=== PATIENT | male | born 1975 | race African-American/Black ===

== ENCOUNTER 2016-05-22 15:55 | Inpatient (IN) | payer OTHER ==
[~2016-05-22] VITALS: Ht 177.8 cm; Wt 168.8 kg
[~2016-05-22 15:55] MED LIST: NORMOSOL R INJ 3,000 ML IV ONE; ONDANSETRON HCL 4 MG/2 ML VIAL IV PUSH ONE; PHENYLEPH/NS 1000 MCG/10 ML SYR IV ONE; PROPOFOL 200 MG/20 ML AMP IV ONE; ePHEDrine/NS 25 MG/5 ML SYR IV ONE
[2016-05-22 16:00] VITALS: O2SAT 97
[2016-05-22] MEDS ORDERED: ceFAZolin 2 GM PREMIX 50 ML ONE (16:04)
[2016-05-22] MEDS ORDERED: MORPHINE SULFATE 8 MG/ML INJ ONE (16:04)
[2016-05-22] MEDS ORDERED: DIPHTH/TETANUS/ACEL PERTUSSIS (BOOSTER) 0.5 ML VIAL/PFS IM ONE (16:05)
[2016-05-22 16:28] LABS: AUTOMATED NEUTROPHIL # 5.5 TH/MM3 (1.8-7.7); BASOPHIL # 0.1 TH/MM3 (0-0.2); BASOPHIL % 1.7 % (0.0-2.0); EOSINOPHIL # 0.3 TH/MM3 (0-0.4); EOSINOPHIL % 3.3 % (0.0-4.0); HEMATOCRIT 39.3 % (39.0-51.0); HEMO FLAGS DIFF FINAL; LYMPH % 18.5 % (9.0-44.0); LYMPHOCYTE # 1.5 TH/MM3 (1.0-4.8); MEAN CELL VOLUME 84.2 FL (80.0-100.0); MEAN CORPUSCULAR HEMOGLOBIN 28.1 PG (27.0-34.0); MEAN CORPUSCULAR HGB CONC 33.4 % (32.0-36.0); MONO % 9.2 % (0.0-8.0); NEUT % 67.3 % (16.0-70.0); PLATELET COUNT 199 TH/MM3 (150-450); RED BLOOD COUNT 4.66 MIL/MM3 (4.50-5.90); RED CELL DISTRIBUTION WIDTH 14.9 % (11.6-17.2); WHITE BLOOD COUNT 8.1 TH/MM3 (4.0-11.0)
[2016-05-22 16:35] LABS: I-STAT POTASSIUM 3.6 MMOL/L (3.5-4.9)
[2016-05-22 16:37] LABS: APTT (PATIENT) 25.4 SEC (24.3-30.1); PROTHROMBIN TIME - PATIENT 10.9 SEC (9.8-11.6)
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
[2016-05-22 17:04] VITALS: BP 129/67; PULSE 66; RESP 13; TEMP 97.7; O2SAT 97
[2016-05-22] MEDS ORDERED: SODIUM CHLOR 0.9% 1000 ML INJ 1,000 ML IV SCH (17:12)
[2016-05-22] MEDS ORDERED: HYDROmorphone HCL PF 1 MG/ML VIAL IV PRN (17:15)
[2016-05-22] MEDS ORDERED: MISCELLANEOUS NURSING INFORMATION XX SCH (17:15)
[2016-05-22] MEDS ORDERED: CHLORHEXIDINE GLUCONATE 2 % 1 PACK (2 CLOTHS) TOP PRN (17:15)
[2016-05-22] MEDS ORDERED: SODIUM CHLORIDE 0.9% FLUSH 5 ML FLUSH IV FLUSH PRN (17:15)
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
[2016-05-22] MEDS ORDERED: IOHEXOL 350 MG/ML 10 ML VIAL (for RAD DIAG) IV ONE (17:22)
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
[2016-05-22 17:45] VITALS: BP 131/60; PULSE 67; RESP 22; O2SAT 98
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
[2016-05-22] MEDS ORDERED: GENTAMICIN SULFATE 80 MG/2 ML VIAL ONE ×2 (17:47→19:34)
[2016-05-22] MEDS ORDERED: ceFAZolin INJ 1,000 MG VIAL ONE (17:47)
[2016-05-22] MEDS ORDERED: VANCOMYCIN HCL 1000 MG VIAL ONE (17:47)
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
--- NOTE | 2016-05-22 17:51 | PD.ORT.PN ---
Subjective Subjective Remarks Left open tibia/fibula fracture Objective Vitals Vital Signs Date Time Temp Pulse Resp B/P Pulse Ox O2 Delivery O2 Flow Rate FiO2 05/22/16 17:04 97.7 66 13 129/67 97 05/22/16 16:00 97 2.00 Result Diagram: 05/22/16 1605 Other Results Laboratory Tests Test 05/22/16 16:05 Prothrombin Time 10.9 SEC (9.8-11.6) Prothromb Time International 1.0 RATIO Ratio Imaging Last 24 hours Impressions Thoracic Spine CT 05/22/16 1610 Signed Impressions: Service Date/Time: Sunday, May 22, 2016 16:33 - CONCLUSION: Negative trauma CT. Steve Rogers MD Pelvis X-Ray 05/22/16 1610 Signed Impressions: Service Date/Time: Sunday, May 22, 2016 16:11 - CONCLUSION: No definite fracture. There is extensive overlying artifact limiting visualization. Steve Rogers MD Maxillofacial CT 05/22/16 1610 Signed Impressions: Service Date/Time: Sunday, May 22, 2016 16:13 - CONCLUSION: Negative trauma CT. Steve Rogers MD Head CT 05/22/16 1610 Signed Impressions: Service Date/Time: Sunday, May 22, 2016 16:13 - CONCLUSION: No acute hemorrhage or mass effect identified. The study is degraded by streak artifact. Steve Rogers MD Cervical Spine CT 05/22/16 1610 Signed Impressions: Service Date/Time: Sunday, May 22, 2016 16:13 - CONCLUSION: Negative trauma CT. Steve Rogers MD Tibia/Fibula X-Ray 05/22/16 0000 Signed Impressions: Service Date/Time: Sunday, May 22, 2016 16:11 - CONCLUSION: 1. Comminuted fracture of the proximal tibia. 2. Multiple fibula fractures. 3. Apparent deformity of the distal femur which is poorly visualized. 4. Soft tissue swelling and gas bubbles in the lateral proximal leg. Steve Rogers MD Objective Remarks full consult dictated Assessment & Plan Problem List: (1) Type I or II open fracture of shaft of left tibia and fibula Assessment and Plan Discussed with Trauma surgeon Discussed options with patient Recommend I and D and ORIF Informed consent was obtained Mathieu Carballo MD May 22, 2016 17:51
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
--- NOTE | 2016-05-22 17:57 | PD ---
Physical Exam Time Seen by Provider: 17:55 Data Data Last Documented VS Vital Signs Date Time Temp Pulse Resp B/P Pulse Ox O2 Delivery O2 Flow Rate FiO2 05/22/16 16:00 97 2.00 Orders Morphine Inj (Morphine Inj) (05/22/16 16:04) Cefazolin 2 Gm Premix (Ancef 2 Gm Premix (05/22/16 16:04) Tirz-Yly-Pwikxf (Booster) Inj (Boostrix (05/22/16 16:05) I-Stat Profile (05/22/16 16:10) I-Stat Creatinine (05/22/16 16:10) Complete Blood Count With Diff (05/22/16 16:10) Prothrombin Time / Inr (Pt) (05/22/16 16:10) Act Partial Throm Time (Ptt) (05/22/16 16:10) Type And Screen (05/22/16 16:10) Pelvis, Ap Only (Routine) (05/22/16 16:10) Ct Brain W/O Iv Contrast(Rout) (05/22/16 16:10) Ct Cerv Spine W/O Contrast (05/22/16 16:10) Ct Abd/Pel W Iv Contrast(Rout) (05/22/16 16:10) Ct Thorax/ Chest W Iv Contrast (05/22/16 16:10) Ct Thor Spine W/O Contrast (05/22/16 16:10) Ct Lumb Spine W/O Contrast (05/22/16 16:10) Ct Facial Bones W/O Iv Cont (05/22/16 16:10) Iv Access Insert/Monitor (05/22/16 16:10) Ecg Monitoring (05/22/16 16:10) Oximetry (05/22/16 16:10) Oxygen Administration (05/22/16 16:10) Admit Order (Ed Use Only) (05/22/16 ) Tibia/Fibula, One View (05/22/16 ) Red Blood Cells (Rbc) (05/22/16 16:05) Labs Laboratory Tests Test 05/22/16 16:05 White Blood Count 8.1 TH/MM3 Red Blood Count 4.66 MIL/MM3 Hemoglobin 13.1 GM/DL Bedside Hemoglobin 13.6 G/DL Hematocrit 39.3 % Bedside Hematocrit 40.0 % Mean Corpuscular Volume 84.2 FL Mean Corpuscular Hemoglobin 28.1 PG Mean Corpuscular Hemoglobin 33.4 % Concent Red Cell Distribution Width 14.9 % Platelet Count 199 TH/MM3 Mean Platelet Volume 9.3 FL Neutrophils (%) (Auto) 67.3 % Lymphocytes (%) (Auto) 18.5 % Monocytes (%) (Auto) 9.2 % Eosinophils (%) (Auto) 3.3 % Basophils (%) (Auto) 1.7 % Neutrophils # (Auto) 5.5 TH/MM3 Lymphocytes # (Auto) 1.5 TH/MM3 Monocytes # (Auto) 0.7 TH/MM3 Eosinophils # (Auto) 0.3 TH/MM3 Basophils # (Auto) 0.1 TH/MM3 CBC Comment DIFF FINAL Differential Comment Prothrombin Time 10.9 SEC Prothromb Time International 1.0 RATIO Ratio Activated Partial 25.4 SEC Thromboplast Time Bedside Sodium 142 MMOL/L Bedside Potassium 3.6 MMOL/L Bedside Chloride 104 MMOL/L Bedside Blood Urea Nitrogen 19 MG/DL Bedside Creatinine 1.7 MG/DL Bedside Glucose 188 MG/DL Blood Type O POSITIVE Antibody Screen NEGATIVE Crossmatch Leukocyte-Reduced Red Blood Cells Blood Bank Comment [facility] Medical Record Reviewed: Yes Supervised Visit with MIGEL: No Procedures Procedure Narrative LACERATION LOCATION: Left eyelid LENGTH: 1.5 centimeters NUMBER OF STITCHES/ZULY: Stay strips and Dermabond skin adhesive REPAIR: The area of the laceration was prepped with Betadine and sterilely draped. The wound was copiously irrigated and explored without evidence of foreign body, tendon injury or neurovascular injury. The wound was closed using Steri-Strips and Dermabond. This was a single layer repair. A sterile dressing was applied. The patient was advised to keep the dressing clean and dry. Patient tolerated the procedure well. Condition: Stable Mikala SmithP May 22, 2016 17:57
[2016-05-22] MEDS ORDERED: MISCELLANEOUS NURSING INFORMATION XX PRN (18:00)
[2016-05-22] MEDS ORDERED: MAGNESIUM HYDROXIDE SUSP 30 ML CUP PO PRN (18:00)
[2016-05-22] MEDS ORDERED: Post-op Orders (for Pharmacy) MISC XX ONE (18:00)
[2016-05-22] MEDS ORDERED: ONDANSETRON HCL 4 MG/2 ML VIAL IVP PRN (18:00)
[2016-05-22] MEDS ORDERED: NALOXONE HCL 0.4 MG/ML AMP IV PRN (18:00)
[2016-05-22] MEDS ORDERED: SODIUM CHLORIDE 0.9% FLUSH 5 ML FLUSH IVF PRN (18:00)
[2016-05-22] MEDS ORDERED: ACETAMINOPHEN 325 MG TAB PO PRN (18:00)
[2016-05-22] MEDS ORDERED: ACETAMINOPHEN 1000 MG/100 ML VIAL IV ONE (18:11)
--- NOTE | 2016-05-22 18:20 | PD.CONS ---
HPI Service Critical Care Medicine Consult Requested By Primary Care Physician Past Family Social History Allergies: Coded Allergies: UNOBTAINABLE (Unverified , 05/22/16) Physical Exam Vital Signs Vital Signs Date Time Temp Pulse Resp B/P Pulse Ox O2 Delivery O2 Flow Rate FiO2 05/22/16 17:45 67 22 131/60 98 Nasal Cannula 2 05/22/16 17:04 97.7 66 13 129/67 97 05/22/16 16:00 97 2.00 Laboratory Laboratory Tests Test 05/22/16 16:05 White Blood Count 8.1 Red Blood Count 4.66 Hemoglobin 13.1 Bedside Hemoglobin 13.6 Hematocrit 39.3 Bedside Hematocrit 40.0 Mean Corpuscular Volume 84.2 Mean Corpuscular Hemoglobin 28.1 Mean Corpuscular Hemoglobin 33.4 Concent Red Cell Distribution Width 14.9 Platelet Count 199 Mean Platelet Volume 9.3 Neutrophils (%) (Auto) 67.3 Lymphocytes (%) (Auto) 18.5 Monocytes (%) (Auto) 9.2 Eosinophils (%) (Auto) 3.3 Basophils (%) (Auto) 1.7 Neutrophils # (Auto) 5.5 Lymphocytes # (Auto) 1.5 Monocytes # (Auto) 0.7 Eosinophils # (Auto) 0.3 Basophils # (Auto) 0.1 CBC Comment DIFF FINAL Differential Comment Prothrombin Time 10.9 Prothromb Time International 1.0 Ratio Activated Partial 25.4 Thromboplast Time Bedside Sodium 142 Bedside Potassium 3.6 Bedside Chloride 104 Bedside Blood Urea Nitrogen 19 Bedside Creatinine 1.7 Bedside Glucose 188 Blood Type O POSITIVE Antibody Screen NEGATIVE Crossmatch Leukocyte-Reduced Red Blood Cells Blood Bank Comment Result Diagram: 05/22/16 1605 Zach Spangler MD May 22, 2016 18:20
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
[2016-05-22 19:55] LABS: BLOOD GAS VENOUS BASE EXCESS -0.5 mmol/L (-2-2); BLOOD GAS VENOUS HCO3 24 mmol/L (22-26); BLOOD GAS VENOUS O2 CONTENT 11.6 Vol % (9.0-17.0); BLOOD GAS VENOUS O2 HGB SAT 70 % (70-76); BLOOD GAS VENOUS PCO2 43 mmHg (44-48); BLOOD GAS VENOUS PO2 38 mmHg (35-40); BLOOD GAS VENOUS pH 7.37 (7.360-7.400); CRITICAL VALUE NO; OXYGEN DEVICE O.R. GAS; TEMP CORR TO 98.6
[2016-05-22 19:56] LABS: STAT YES; VENT SETTINGS O.R.GAS
[2016-05-22] MEDS ORDERED: MIDAZOLAM HCL 2 MG/2 ML VIAL ONE (20:21)
[2016-05-22] MEDS ORDERED: SODIUM CHLORIDE 0.9% FLUSH 5 ML FLUSH IV FLUSH SCH (21:00)
[2016-05-22] MEDS: DOCUSATE SODIUM 50 MG/SENNA 8.6 MG TAB PO SCH (21:00)
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
[2016-05-22] MEDS: PCA - TOTAL MG DILAUDID DELIVERED PER SHIFT OTHER SCH (22:00)
--- NOTE | 2016-05-22 22:28 | PD.OP ---
Operative Report Date of Surgery: May 22, 2016 Preoperative Diagnosis: (1) Type I or II open fracture of shaft of left tibia and fibula Postoperative Diagnosis: (1) Type I or II open fracture of shaft of left tibia and fibula Procedure: 1) Irrigation and debridement of open left tibial and fibula fracture 2) Left tibial open reduction and internal fixation of intramedullary rodding 3) Placement of wound vac Anesthesia: General Surgeon: Dr. Mathieu Carballo Statement Processor(s): RAGHU Ames Operation and Findings: See Dictation Rosendo Villagomez May 22, 2016 22:28
[2016-05-22] MEDS: DEXT 5%-NACL 0.45% 1000 ML INJ 1,000 ML IV SCH (22:30)
[2016-05-22] MEDS ORDERED: INSULIN HUMAN REGULAR 1,000 UNITS/10 ML VIAL SQ PRN (22:45)
[2016-05-22] MEDS ORDERED: LACTATED RINGER'S 1000 ML IV SCH (22:45)
[2016-05-22] MEDS: SODIUM CHLORID 0.9% 500 ML IV SCH (22:45)
[2016-05-22] MEDS ORDERED: METOPROLOL TARTRATE 25 MG TAB PO PRN (22:45)
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
[2016-05-22] MEDS: HYDROmorphone HCL PCA 6 MG/30 ML IV SCH (23:10)
[2016-05-22] MEDS ORDERED: POTASSIUM PHOSPHATE INJ 30 MMOL in SODIUM CHLOR 0.9% 250 ML INJ 250 ML IV PRN (23:30)
[2016-05-22] MEDS ORDERED: MAGNESIUM SULFATE INJ 4 GM in SODIUM CHLORIDE 0.9% INJ 92 ML IV PRN (23:30)
[2016-05-22] MEDS ORDERED: MAGNESIUM SULFATE INJ 2 GM in SODIUM CHLORIDE 0.9% INJ 96 ML IV PRN (23:30)
[2016-05-22] MEDS ORDERED: SODIUM PHOSPHATE INJ 30 MMOL in SODIUM CHLOR 0.9% 250 ML INJ 240 ML IV PRN (23:30)
[2016-05-22] MEDS ORDERED: POTASSIUM PHOSPHATE MONOBASIC 500 MG TAB PO/TUBE PRN (23:30)
[2016-05-22] MEDS ORDERED: POTASSIUM CHLOR 40 MEQ PREMIX 100 ML IV PRN ×2 (23:30)
[2016-05-22] MEDS ORDERED: MAGNESIUM OXIDE 400 MG TAB PO PRN (23:30)
[2016-05-22] MEDS ORDERED: POTASSIUM CHLOR 20 MEQ PREMIX 100 ML IV PRN ×2 (23:30)
[2016-05-22 23:51] LABS: MAGNESIUM 2.3 MG/DL (1.5-2.5)
[2016-05-23] MEDS ORDERED: CHLORHEXIDINE GLUCONATE 2 % 1 PACK (2 CLOTHS) TOP SCH (04:00)
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
[2016-05-23 04:47] LABS: AUTOMATED NEUTROPHIL # 10.9 TH/MM3 (1.8-7.7); BASOPHIL % 0.4 % (0.0-2.0); HEMATOCRIT 34.7 % (39.0-51.0); HEMO FLAGS DIFF FINAL; LYMPHOCYTE # 0.5 TH/MM3 (1.0-4.8); MEAN CELL VOLUME 85.5 FL (80.0-100.0); MEAN CORPUSCULAR HEMOGLOBIN 28.1 PG (27.0-34.0); MEAN CORPUSCULAR HGB CONC 32.8 % (32.0-36.0); MONO % 10.2 % (0.0-8.0); NEUT % 85.4 % (16.0-70.0); PLATELET COUNT 147 TH/MM3 (150-450); RED BLOOD COUNT 4.06 MIL/MM3 (4.50-5.90); RED CELL DISTRIBUTION WIDTH 14.9 % (11.6-17.2); WHITE BLOOD COUNT 12.8 TH/MM3 (4.0-11.0)
[2016-05-23 05:27] LABS: BICARBONATE 24.3 MEQ/L (21.0-32.0); POTASSIUM 3.9 MEQ/L (3.5-5.1)
[2016-05-23] MEDS: DEXT 5%-NACL 0.45% 1000 ML INJ 1,000 ML IV SCH ×3 (06:00→12:35)
[2016-05-23] MEDS: PCA - TOTAL MG DILAUDID DELIVERED PER SHIFT OTHER SCH ×3 (06:00→22:00)
[2016-05-23] MEDS ORDERED: SODIUM CHLOR 0.9% 1000 ML INJ 1,000 ML IV ONE ×2 (06:45→07:00)
[2016-05-23] MEDS ORDERED: ACETAMINOPHEN 325 MG TAB PO PRN (06:45)
[2016-05-23] MEDS ORDERED: LABETALOL HCL 100 MG/20 ML VIAL IV PUSH PRN (06:45)
[2016-05-23 07:10] LABS: BLOOD, URINE NEG (NEG); COMMENT (UR) CULT NOT INDICATED; CULTURE IF INDICATED CULT NOT INDICATED; GLUCOSE,URINE NEG (NEG); KETONE, URINE NEG (NEG); MUCUS URINE FEW /lpf (OCC); NITRITE,URINE NEG (NEG); PH, URINE 5.5 (5.0-8.5); SQUAMOUS EPITHELIAL CELL URINE <1 /hpf (0-5); URINE COLOR YELLOW (YELLW/STRAW)
[2016-05-23] MEDS ORDERED: hydrALAZINE HCL 20 MG/ML VIAL IV PUSH PRN (07:45)
[2016-05-23] MEDS: ceFAZolin 2 GM PREMIX 50 ML IV SCH ×3 (07:48→16:10)
[2016-05-23] MEDS: MULTIVITAMINS/MINERALS THERAPEUTIC TAB PO SCH (08:24)
[2016-05-23] MEDS: DOCUSATE SODIUM 50 MG/SENNA 8.6 MG TAB PO SCH ×2 (08:24→20:45)
[2016-05-23] MEDS: FAMOTIDINE 20 MG TAB PO SCH ×2 (08:24→20:45)
[2016-05-23] MEDS: SODIUM CHLORIDE 0.9% FLUSH 5 ML FLUSH IVF SCH ×2 (09:00→21:00)
[2016-05-23] MEDS: LACTULOSE SYRUP 20 GM/30 ML CUP PO SCH (10:13)
[2016-05-23 10:45] VITALS: BP 103/53; PULSE 85; RESP 16; TEMP 98.9; O2SAT 98
[2016-05-23 11:34] VITALS: BP 103/53; PULSE 85; RESP 16; TEMP 98.9; O2SAT 98
[2016-05-23] MEDS: oxyCODONE/ACETAMINOPHEN 5 MG/325 MG TAB PO PRN ×3 (12:20→20:46)
[2016-05-23] MEDS: SODIUM CHLORID 0.9% 500 ML IV SCH (12:22)
[2016-05-23 12:23] VITALS: BP 92/52; PULSE 76; RESP 16; TEMP 99.4; O2SAT 98
[2016-05-23] MEDS ORDERED: WALKER WHEELS/F1 MIS (13:32)
--- NOTE | 2016-05-23 15:43 | HHI.PR ---
Subjective Subjective Notes Pain is better controlled with Dilaudid INSPECTOR WEIGHTS AND MEASURES S/P LEFT tibia irrigation and debridement with IM jaime. Objective Vitals/I&O Vital Signs Date Time Temp Pulse Resp B/P Pulse Ox O2 Delivery O2 Flow Rate FiO2 05/23/16 12:23 99.4 76 16 92/52 98 05/23/16 08:00 Room Air 05/22/16 23:00 2 Labs Laboratory Tests Test 05/22/16 05/22/16 05/23/16 05/23/16 16:05 19:45 04:02 06:45 White Blood Count 8.1 12.8 Red Blood Count 4.66 4.06 Hemoglobin 13.1 11.4 Bedside Hemoglobin 13.6 Hematocrit 39.3 34.7 Bedside Hematocrit 40.0 Mean Corpuscular Volume 84.2 85.5 Mean Corpuscular Hemoglobin 28.1 28.1 Mean Corpuscular Hemoglobin 33.4 32.8 Concent Red Cell Distribution Width 14.9 14.9 Platelet Count 199 147 Mean Platelet Volume 9.3 9.2 Neutrophils (%) (Auto) 67.3 85.4 Lymphocytes (%) (Auto) 18.5 4.0 Monocytes (%) (Auto) 9.2 10.2 Eosinophils (%) (Auto) 3.3 0.0 Basophils (%) (Auto) 1.7 0.4 Neutrophils # (Auto) 5.5 10.9 Lymphocytes # (Auto) 1.5 0.5 Monocytes # (Auto) 0.7 1.3 Eosinophils # (Auto) 0.3 0.0 Basophils # (Auto) 0.1 0.0 CBC Comment DIFF FINAL DIFF FINAL Differential Comment Prothrombin Time 10.9 Prothromb Time International 1.0 Ratio Activated Partial 25.4 Thromboplast Time Bedside Sodium 142 Bedside Potassium 3.6 Bedside Chloride 104 Bedside Blood Urea Nitrogen 19 Bedside Creatinine 1.7 Bedside Glucose 188 Phosphorus Level 3.5 Magnesium Level 2.3 Blood Type O POSITIVE Antibody Screen NEGATIVE Crossmatch Leukocyte-Reduced Red Blood Cells Blood Bank Comment Blood Gas Puncture Site Blood Gas Patient Temperature 98.6 Venous Blood pH 7.37 Venous Blood Partial Pressure 43 CO2 Venous Blood Partial Pressure 38 O2 Venous Blood HCO3 24 Venous Blood Oxygen Saturation 70 Venous Blood Oxygen Content 11.6 Venous Blood Base Excess -0.5 Oxygen Delivery Device O.R. GAS Blood Gas Ventilator Setting O.R.GAS Sodium Level 143 Potassium Level 3.9 Chloride Level 108 Carbon Dioxide Level 24.3 Anion Gap 11 Blood Urea Nitrogen 21 Creatinine 1.98 Estimat Glomerular Filtration 29 Rate Random Glucose 129 Calcium Level 7.8 Urine Color YELLOW Urine Turbidity CLEAR Urine pH 5.5 Urine Specific [place] 1.043 Urine Protein TRACE Urine Glucose (UA) NEG Urine Ketones NEG Urine Occult Blood NEG Urine Nitrite NEG Urine Bilirubin NEG Urine Urobilinogen LESS THAN 2.0 Urine Leukocyte Esterase TRACE Urine RBC LESS THAN 1 Urine WBC 2 Urine Squamous Epithelial <1 Cells Urine Mucus FEW Microscopic Urinalysis Comment CULT NOT INDICATED Radiology Last Impressions Thoracic Spine CT 05/22/161609 Signed Impressions: Service Date/Time: Sunday, May 22, 2016 16:33 - CONCLUSION: Negative trauma CT. Steve Rogers MD Pelvis X-Ray 05/22/161609 Signed Impressions: Service Date/Time: Sunday, May 22, 2016 16:11 - CONCLUSION: No definite fracture. There is extensive overlying artifact limiting visualization. Steve Rogers MD Maxillofacial CT 05/22/161609 Signed Impressions: Service Date/Time: Sunday, May 22, 2016 16:13 - CONCLUSION: Negative trauma CT. Steve Rogers MD Lumbar Spine CT 05/22/161609 Signed Impressions: Service Date/Time: Sunday, May 22, 2016 16:33 - CONCLUSION: Negative trauma CT. Steve Rogers MD Head CT 05/22/161609 Signed Impressions: Service Date/Time: Sunday, May 22, 2016 16:13 - CONCLUSION: No acute hemorrhage or mass effect identified. The study is degraded by streak artifact. Steve Rogers MD Chest CT 05/22/161609 Signed Impressions: Service Date/Time: Sunday, May 22, 2016 16:33 - CONCLUSION: 1. Comminuted fracture of the left clavicle. 2. The Ribs are intact and there is no pneumothorax. Steve Rogers MD Cervical Spine CT 05/22/161609 Signed Impressions: Service Date/Time: Sunday, May 22, 2016 16:13 - CONCLUSION: Negative trauma CT. Steve Rogers MD Abdomen/Pelvis CT 05/22/161609 Signed Impressions: Service Date/Time: Sunday, May 22, 2016 16:33 - CONCLUSION: Negative trauma CT. Steve Rogers MD Tibia/Fibula X-Ray 05/22/16 0000 Signed Impressions: Service Date/Time: Sunday, May 22, 2016 21:06 - CONCLUSION: Fluoroscopic images during placement of intramedullary jaime fixating left tibia fracture. Sahil Portillo MD Chest X-Ray 05/22/16 0000 Signed Impressions: Service Date/Time: Sunday, May 22, 2016 16:11 - CONCLUSION: No acute disease. Left clavicle fracture. Sahil Portillo MD Narrative Exam GENERAL: 40 year old well-nourished, well developed male lying in bed. SKIN: Warm and dry. HEAD: Atraumatic. Normocephalic. ENT: No nasal bleeding or discharge. Mucous membranes pink and moist. NECK: Trachea midline. No JVD. CARDIOVASCULAR: Regular rate and rhythm. RESPIRATORY: No accessory muscle use. Lungs clear to auscultation. Breath sounds equal bilaterally. GASTROINTESTINAL: Abdomen soft, non-tender, nondistended. + BS. GENITOURINARY: Kumar cath in place draining hilary urine to bedside drainage bag. MUSCULOSKELETAL: Extremities without cyanosis, +2 edema LLE. LLE with wound vac in place. NEUROLOGICAL: Awake and alert. Normal speech. A/P Assessment and Plan INJURIES: Open LEFT tib-fib fracture LEFT clavicle fx (non-op) 05/22: LEFT tibia irrigation and debridement with IM jaime. Diet: Regular Pulmonary: IS, encourage patient use Pain: Percocet, Dilaudid INSPECTOR WEIGHTS AND MEASURES Activity: BR. (NWB LLE). PT ordered. GI: Pepcid Bowel: Lactulose DVT: Lovenox, SCDs IV Ancef per Ortho. Plan of care discussed with patient at bedside. Patient to obtain list of home medications. Remarks seen and examined with MACHINE OPERATOR TRANSPLANTER-agree with assessment and plan Delgado Barcenas May 23, 2016 15:43 Jeni Gómez MD Jun 01, 2016 17:48
--- NOTE | 2016-05-23 15:55 | PD.ORT.PN ---
Subjective Subjective Remarks Left tibia/fibula pain controlled Objective Vitals Vital Signs Date Time Temp Pulse Resp B/P Pulse Ox O2 Delivery O2 Flow Rate FiO2 05/23/16 12:23 99.4 76 16 92/52 98 05/23/16 12:20 16 05/23/16 11:34 98.9 85 16 103/53 98 05/23/16 10:45 98.9 85 16 103/53 98 05/23/16 08:00 83 16 155/93 96 Room Air 05/23/16 07:30 99.9 83 16 148/77 97 Room Air 05/23/16 07:00 80 20 150/82 96 Room Air 05/23/16 06:00 100.9 76 13 146/78 96 Room Air 05/23/16 06:00 14 05/23/16 05:00 78 15 143/85 94 Room Air 05/23/16 04:00 99.7 70 17 140/78 95 Room Air 05/23/16 03:00 71 16 122/74 98 Room Air 05/23/16 02:00 98.9 63 14 148/77 98 Room Air 05/23/16 01:00 71 13 131/78 98 Room Air 05/23/16 00:00 98.4 81 16 130/78 96 Room Air 05/22/16 23:10 12 05/22/16 23:00 98.2 75 11 117/70 99 Nasal Cannula 2 05/22/16 22:45 69 11 121/72 100 Nasal Cannula 2 05/22/16 22:30 71 9 123/69 100 Nasal Cannula 2 05/22/16 22:15 65 9 135/76 100 Nasal Cannula 3 05/22/16 22:07 98.6 99 10 132/92 95 Nasal Cannula 3 05/22/16 22:00 12 05/22/16 17:45 67 22 131/60 98 Nasal Cannula 2 05/22/16 17:04 97.7 66 13 129/67 97 05/22/16 16:00 97 2.00 I/O 05/22/16 05/22/16 05/22/16 05/23/16 05/23/16 05/23/16 07:00 15:00 23:00 07:00 15:00 23:00 Intake Total 4200 ml 1873 ml 1222 ml Output Total 1075 ml 395 ml 400 ml Balance 3125 ml 1478 ml 822 ml Intake Oral 0 ml 880 ml 222 ml IV Total 200 ml 993 ml 1000 ml Other 4000 ml Output Urine Total 75 ml 395 ml Drainage Total 400 ml Estimated Blood Loss 300 ml Other 700 ml Result Diagram: 05/23/16 0402 05/23/16 0402 Other Results Laboratory Tests Test 05/22/16 16:05 Prothrombin Time 10.9 SEC (9.8-11.6) Prothromb Time International 1.0 RATIO Ratio Imaging Last [address]ine CT 05/22/16 1610 Signed Impressions: Service Date/Time: Sunday, May 22, 2016 16:33 - CONCLUSION: Negative trauma CT. Steve Rogers MD Pelvis X-Ray 05/22/16 161 Signed Impressions: Service Date/Time: Sunday, May 22, 2016 16:11 - CONCLUSION: No definite fracture. There is extensive overlying artifact limiting visualization. Steve Rogers MD Maxillofacial CT 05/22/16 161 Signed Impressions: Service Date/Time: Sunday, May 22, 2016 16:13 - CONCLUSION: Negative trauma CT. Steve Rogers MD Head CT 05/22/16 161 Signed Impressions: Service Date/Time: Sunday, May 22, 2016 16:13 - CONCLUSION: No acute hemorrhage or mass effect identified. The study is degraded by streak artifact. Steve Rogers MD Cervical Spine CT 05/22/16 1610 Signed Impressions: Service Date/Time: Sunday, May 22, 2016 16:13 - CONCLUSION: Negative trauma CT. Steve Rogers MD Tibia/Fibula X-Ray 05/22/16 0000 Signed Impressions: Service Date/Time: Sunday, May 22, 2016 16:11 - CONCLUSION: 1. Comminuted fracture of the proximal tibia. 2. Multiple fibula fractures. 3. Apparent deformity of the distal femur which is poorly visualized. 4. Soft tissue swelling and gas bubbles in the lateral proximal leg. Steve Rogers MD Objective Remarks Left lower extremity VAC in place foot NVI negative shania's Assessment & Plan Ortho Post Op Day #: 1 Problem List: (1) Type I or II open fracture of shaft of left tibia and fibula Assessment and Plan S/P ORIF and I and D Left Tibia Plateau POD #1 Continue VAC for 4 to 5 days pain control DVT prophalaxis Monitor Discussed surgical finding with patient and his Mathieu Carballo MD May 23, 2016 15:55
[2016-05-23 16:13] VITALS: BP 142/71; PULSE 78; RESP 18; TEMP 99.1; O2SAT 98
[2016-05-23] MEDS ORDERED: HYDR50TA15 PO (16:55)
[2016-05-23] MEDS ORDERED: CARV25TA PO (16:55)
[2016-05-23] MEDS ORDERED: AMLO10TA2 PO (16:55)
[2016-05-23] MEDS ORDERED: LISI20TA PO (16:55)
[2016-05-23] MEDS: BACITRACIN/POLYMYXIN B 15 GM TUBE TOPICAL SCH (21:00)
[2016-05-23] MEDS: ENOXAPARIN SODIUM 40 MG/0.4 ML SYRINGE SQ SCH (21:15)
[2016-05-23] MEDS: HYDROmorphone HCL PCA 6 MG/30 ML IV SCH (22:47)
[2016-05-23 22:54] VITALS: BP 146/82; PULSE 84; RESP 22; TEMP 99.2; O2SAT 95
[2016-05-24] MEDS: ceFAZolin 2 GM PREMIX 50 ML IV SCH ×3 (00:18→18:11)
[2016-05-24 01:02] VITALS: BP 136/84; PULSE 90; RESP 20; TEMP 99.1; O2SAT 99
[2016-05-24] MEDS: PCA - TOTAL MG DILAUDID DELIVERED PER SHIFT OTHER SCH ×3 (04:23→22:00)
[2016-05-24 04:57] VITALS: BP 141/78; PULSE 88; RESP 20; TEMP 98.6; O2SAT 97
[2016-05-24 08:00] VITALS: BP 146/85; PULSE 103; RESP 17; TEMP 100; O2SAT 95
[2016-05-24] MEDS: SODIUM CHLORIDE 0.9% FLUSH 5 ML FLUSH IVF SCH ×2 (08:07→22:55)
[2016-05-24] MEDS: BACITRACIN/POLYMYXIN B 15 GM TUBE TOPICAL SCH ×2 (08:08→22:55)
[2016-05-24] MEDS: DOCUSATE SODIUM 50 MG/SENNA 8.6 MG TAB PO SCH ×2 (08:08→22:50)
[2016-05-24] MEDS: MULTIVITAMINS/MINERALS THERAPEUTIC TAB PO SCH (08:08)
[2016-05-24] MEDS: FAMOTIDINE 20 MG TAB PO SCH ×2 (08:08→22:50)
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
[2016-05-24] MEDS: hydrALAZINE HCL 50 MG TAB PO SCH ×3 (09:00→18:11)
[2016-05-24] MEDS: HYDROCHLOROTHIAZIDE 12.5 MG CAP PO SCH (09:15)
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
[2016-05-24 12:00] VITALS: BP 155/87; PULSE 92; RESP 21; TEMP 99.1; O2SAT 97
--- NOTE | 2016-05-24 12:14 | PD.ORT.PN ---
Subjective Subjective Remarks In regards to left knee, pain is controlled. C/o left clavicle pain. Family member at bedside. Objective Vitals Vital Signs Date Time Temp Pulse Resp B/P Pulse Ox O2 Delivery O2 Flow Rate FiO2 05/24/16 08:00 100.0 103 17 146/85 95 05/24/16 04:57 98.6 88 20 141/78 97 05/24/16 04:23 18 05/24/16 01:02 99.1 90 20 136/84 99 05/23/16 23:17 18 05/23/16 22:54 99.2 84 22 146/82 95 05/23/16 22:47 18 05/23/16 22:00 18 05/23/16 21:46 18 05/23/16 16:13 99.1 78 18 142/71 98 05/23/16 12:23 99.4 76 16 92/52 98 05/23/16 12:20 16 I/O 05/23/16 05/23/16 05/23/16 05/24/16 05/24/16 05/24/16 07:00 15:00 23:00 07:00 15:00 23:00 Intake Total 1873 ml 1562 ml 2371 ml 1042 ml Output Total 395 ml 850 ml 520 ml 1220 ml Balance 1478 ml 712 ml 1851 ml -178 ml Intake Oral 880 ml 562 ml 120 ml 240 ml IV Total 993 ml 1000 ml 2251 ml 802 ml Output Urine Total 395 ml 450 ml 500 ml 1200 ml Drainage Total 400 ml 20 ml 20 ml # Bowel Movements 0 0 0 Result Diagram: 05/23/162 05/23/16 040 Imaging Last 24 hours Impressions Thoracic Spine CT 05/22/161609 Signed Impressions: Service Date/Time: Sunday, May 22, 2016 16:33 - CONCLUSION: Negative trauma CT. Steve Rogers MD Pelvis X-Ray 05/22/161609 Signed Impressions: Service Date/Time: Sunday, May 22, 2016 16:11 - CONCLUSION: No definite fracture. There is extensive overlying artifact limiting visualization. Steve Rogers MD Maxillofacial CT 05/22/161609 Signed Impressions: Service Date/Time: Sunday, May 22, 2016 16:13 - CONCLUSION: Negative trauma CT. Steve Rogers MD Head CT 05/22/16 1610 Signed Impressions: Service Date/Time: Sunday, May 22, 2016 16:13 - CONCLUSION: No acute hemorrhage or mass effect identified. The study is degraded by streak artifact. Steve Rogers MD Cervical Spine CT 05/22/16 1610 Signed Impressions: Service Date/Time: Sunday, May 22, 2016 16:13 - CONCLUSION: Negative trauma CT. Steve Rogers MD Tibia/Fibula X-Ray 05/22/16 0000 Signed Impressions: Service Date/Time: Sunday, May 22, 2016 16:11 - CONCLUSION: 1. Comminuted fracture of the proximal tibia. 2. Multiple fibula fractures. 3. Apparent deformity of the distal femur which is poorly visualized. 4. Soft tissue swelling and gas bubbles in the lateral proximal leg. 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
[2016-05-24] MEDS: LISINOPRIL 20 MG TAB PO SCH (12:39)
[2016-05-24] MEDS: CARVEDILOL 12.5 MG TAB PO SCH ×2 (12:48→22:50)
--- NOTE | 2016-05-24 13:56 | HHI.PR ---
Subjective Subjective Notes Still complains of pain on Dilaudid RECYCLING DIRECTOR Eating well Objective Vitals/I&O Vital Signs Date Time Temp Pulse Resp B/P Pulse Ox O2 Delivery O2 Flow Rate FiO2 05/24/16 12:00 99.1 92 21 155/87 97 05/23/16 08:00 Room Air 05/22/16 23:00 2 Labs Laboratory Tests Test 05/22/16 05/22/16 05/23/16 05/23/16 16:05 19:45 04:02 06:45 Bedside Hemoglobin 13.6 G/DL Bedside Hematocrit 40.0 % Prothrombin Time 10.9 SEC Prothromb Time International 1.0 RATIO Ratio Activated Partial 25.4 SEC Thromboplast Time Bedside Sodium 142 MMOL/L Bedside Potassium 3.6 MMOL/L Bedside Chloride 104 MMOL/L Bedside Blood Urea Nitrogen 19 MG/DL Bedside Creatinine 1.7 MG/DL Bedside Glucose 188 MG/DL Phosphorus Level 3.5 MG/DL Magnesium Level 2.3 MG/DL Blood Type O POSITIVE Antibody Screen NEGATIVE Crossmatch Leukocyte-Reduced Red Blood Cells Blood Bank Comment Blood Gas Puncture Site Blood Gas Patient Temperature 98.6 Venous Blood pH 7.37 Venous Blood Partial Pressure 43 mmHg CO2 Venous Blood Partial Pressure 38 mmHg O2 Venous Blood HCO3 24 mmol/L Venous Blood Oxygen Saturation 70 % Venous Blood Oxygen Content 11.6 Vol % Venous Blood Base Excess -0.5 mmol/L Oxygen Delivery Device O.R. GAS Blood Gas Ventilator Setting O.R.GAS White Blood Count 12.8 TH/MM3 Red Blood Count 4.06 MIL/MM3 Hemoglobin 11.4 GM/DL Hematocrit 34.7 % Mean Corpuscular Volume 85.5 FL Mean Corpuscular Hemoglobin 28.1 PG Mean Corpuscular Hemoglobin 32.8 % Concent Red Cell Distribution Width 14.9 % Platelet Count 147 TH/MM3 Mean Platelet Volume 9.2 FL Neutrophils (%) (Auto) 85.4 % Lymphocytes (%) (Auto) 4.0 % Monocytes (%) (Auto) 10.2 % Eosinophils (%) (Auto) 0.0 % Basophils (%) (Auto) 0.4 % Neutrophils # (Auto) 10.9 TH/MM3 Lymphocytes # (Auto) 0.5 TH/MM3 Monocytes # (Auto) 1.3 TH/MM3 Eosinophils # (Auto) 0.0 TH/MM3 Basophils # (Auto) 0.0 TH/MM3 CBC Comment DIFF FINAL Differential Comment Sodium Level 143 MEQ/L Potassium Level 3.9 MEQ/L Chloride Level 108 MEQ/L Carbon Dioxide Level 24.3 MEQ/L Anion Gap 11 MEQ/L Blood Urea Nitrogen 21 MG/DL Creatinine 1.98 MG/DL Estimat Glomerular Filtration 29 ML/MIN Rate Random Glucose 129 MG/DL Calcium Level 7.8 MG/DL Urine Color YELLOW Urine Turbidity CLEAR Urine pH 5.5 Urine Specific [place] 1.043 Urine Protein TRACE mg/dL Urine Glucose (UA) NEG mg/dL Urine Ketones NEG mg/dL Urine Occult Blood NEG Urine Nitrite NEG Urine Bilirubin NEG Urine Urobilinogen LESS THAN 2.0 MG/DL Urine Leukocyte Esterase TRACE Urine RBC LESS THAN 1 /hpf Urine WBC 2 /hpf Urine Squamous Epithelial <1 /hpf Cells Urine Mucus FEW /lpf Microscopic Urinalysis Comment CULT NOT INDICATED Radiology Last Impressions Thoracic Spine CT 05/22/161609 Signed Impressions: Service Date/Time: Sunday, May 22, 2016 16:33 - CONCLUSION: Negative trauma CT. Steve Rogers MD Pelvis X-Ray 05/22/161609 Signed Impressions: Service Date/Time: Sunday, May 22, 2016 16:11 - CONCLUSION: No definite fracture. There is extensive overlying artifact limiting visualization. Steve Rogers MD Maxillofacial CT 05/22/161609 Signed Impressions: Service Date/Time: Sunday, May 22, 2016 16:13 - CONCLUSION: Negative trauma CT. Steve Rogers MD Lumbar Spine CT 05/22/161609 Signed Impressions: Service Date/Time: Sunday, May 22, 2016 16:33 - CONCLUSION: Negative trauma CT. Steve Rogers MD Head CT 05/22/161609 Signed Impressions: Service Date/Time: Sunday, May 22, 2016 16:13 - CONCLUSION: No acute hemorrhage or mass effect identified. The study is degraded by streak artifact. Steve Rogers MD Chest CT 05/22/161609 Signed Impressions: Service Date/Time: Sunday, May 22, 2016 16:33 - CONCLUSION: 1. Comminuted fracture of the left clavicle. 2. The Ribs are intact and there is no pneumothorax. Steve Rogers MD Cervical Spine CT 3/18/17 1610 Signed Impressions: Service Date/Time: Sunday, May 22, 2016 16:13 - CONCLUSION: Negative trauma CT. Steve Rogers MD Abdomen/Pelvis CT 05/22/16 1610 Signed Impressions: Service Date/Time: Sunday, May 22, 2016 16:33 - CONCLUSION: Negative trauma CT. Steve Rogers MD Tibia/Fibula X-Ray 05/22/16 0000 Signed Impressions: Service Date/Time: Sunday, May 22, 2016 21:06 - CONCLUSION: Fluoroscopic images during placement of intramedullary jaime fixating left tibia fracture. Sahil Portillo MD Chest X-Ray 05/22/16 0000 Signed Impressions: Service Date/Time: Sunday, May 22, 2016 16:11 - CONCLUSION: No acute disease. Left clavicle fracture. Sahil Portillo MD Narrative Exam GENERAL: 40 year old well-nourished, well developed male OOB in chair. SKIN: Warm and dry. HEAD: Atraumatic. Normocephalic. ENT: No nasal bleeding or discharge. Mucous membranes pink and moist. NECK: Trachea midline. No JVD. CARDIOVASCULAR: Regular rate and rhythm. RESPIRATORY: No accessory muscle use. Lungs clear to auscultation. Breath sounds equal bilaterally. GASTROINTESTINAL: Abdomen soft, non-tender, nondistended. + BS. GENITOURINARY: Kumar cath in place draining hilary urine to bedside drainage bag. MUSCULOSKELETAL: Extremities without cyanosis, +2 edema LLE. LLE with wound vac in place. NEUROLOGICAL: Awake and alert. Normal speech. A/P Assessment and Plan INJURIES: Open LEFT tib-fib fracture LEFT clavicle fx (non-op) 05/22: LEFT tibia irrigation and debridement with IM jaime. Diet: Regular, tolerating Pulmonary: IS, encouraged patient use Pain: Percocet, Dilaudid RECYCLING DIRECTOR. Keep RECYCLING DIRECTOR one more day. Activity: OOB. (NWB LLE). PT ordered. Patient will be to a chair today. GI: Pepcid Bowel: Lactulose. Tanisha-colace. No BM. Added Miralax. DVT: Lovenox, SCDs DC Kumar today. IV Ancef per Ortho. Plan of care discussed with patient at bedside. Home meds resumed. Delgado Barcenas May 24, 2016 13:56
[2016-05-24] MEDS ORDERED: PILL SPLITTER OTHER PRN (14:15)
[2016-05-24] MEDS: oxyCODONE/ACETAMINOPHEN 5 MG/325 MG TAB PO PRN (14:16)
[2016-05-24 16:00] VITALS: BP 88/63; PULSE 87; RESP 22; TEMP 100.3; O2SAT 100
[2016-05-24] MEDS ORDERED: BACITRACIN OINT 0.9 GM PKT TOP PRN (18:00)
[2016-05-24] MEDS: HYDROmorphone HCL PCA 6 MG/30 ML IV SCH (18:07)
[2016-05-24] MEDS: POLYETHYLENE GLYCOL 17 GM PKG PO SCH (18:12)
[2016-05-24 20:15] VITALS: BP 112/60; PULSE 90; RESP 22; TEMP 100.3; O2SAT 100
[2016-05-24] MEDS: ENOXAPARIN SODIUM 40 MG/0.4 ML SYRINGE SQ SCH (22:51)
[2016-05-25 00:01] VITALS: TEMP 99.8
[2016-05-25] MEDS: ceFAZolin 2 GM PREMIX 50 ML IV SCH ×4 (00:48→23:42)
[2016-05-25 04:43] VITALS: BP 126/68; PULSE 82; RESP 21; TEMP 99.2; O2SAT 99
[2016-05-25] MEDS: PCA - TOTAL MG DILAUDID DELIVERED PER SHIFT OTHER SCH ×3 (06:00→20:08)
[2016-05-25 06:09] LABS: AUTOMATED NEUTROPHIL # 7.9 TH/MM3 (1.8-7.7); BASOPHIL # 0.1 TH/MM3 (0-0.2); BASOPHIL % 0.8 % (0.0-2.0); EOSINOPHIL # 0.1 TH/MM3 (0-0.4); EOSINOPHIL % 0.8 % (0.0-4.0); HEMATOCRIT 23.2 % (39.0-51.0); HEMO FLAGS DIFF FINAL; LYMPHOCYTE # 1.5 TH/MM3 (1.0-4.8); MEAN CELL VOLUME 85.5 FL (80.0-100.0); MEAN CORPUSCULAR HEMOGLOBIN 28.9 PG (27.0-34.0); MEAN CORPUSCULAR HGB CONC 33.8 % (32.0-36.0); NEUT % 70.4 % (16.0-70.0); PLATELET COUNT 125 TH/MM3 (150-450); RED BLOOD COUNT 2.71 MIL/MM3 (4.50-5.90); WHITE BLOOD COUNT 11.3 TH/MM3 (4.0-11.0)
[2016-05-25 06:49] LABS: ALKALINE PHOSPHATASE 41 U/L (45-117); ALT (GPT) 22 U/L (12-78); ANION GAP 8 MEQ/L (5-15); AST (GOT) 67 U/L (15-37); BICARBONATE 26.5 MEQ/L (21.0-32.0); BLOOD UREA NITROGEN 28 MG/DL (7-18); CHLORIDE 106 MEQ/L (98-107); GLOMERULAR FILTRATION RATE 28 ML/MIN (>89); POTASSIUM 3.7 MEQ/L (3.5-5.1); SODIUM (NA) 140 MEQ/L (136-145); TOTAL BILIRUBIN ADULT 0.6 MG/DL (0.2-1.0)
[2016-05-25] MEDS: HYDROmorphone HCL PCA 6 MG/30 ML IV SCH ×3 (07:24→23:46)
--- NOTE | 2016-05-25 07:42 | PD.ORT.PN ---
Subjective Subjective Remarks Left tibia/fibula pain controlled Left Clavicle pain Objective Vitals Vital Signs Date Time Temp Pulse Resp B/P Pulse Ox O2 Delivery O2 Flow Rate FiO2 05/25/16 06:40 Room Air 05/25/16 04:43 99.2 82 21 126/68 99 05/25/16 00:01 99.8 05/24/16 20:15 100.3 90 22 112/60 100 05/24/16 19:02 Room Air 05/24/16 18:07 16 05/24/16 16:00 100.3 87 22 88/63 100 05/24/16 14:00 16 05/24/16 12:00 99.1 92 21 155/87 97 05/24/16 08:00 100.0 103 17 146/85 95 I/O 05/24/16 05/24/16 05/24/16 05/25/16 05/25/16 05/25/16 07:00 15:00 23:00 07:00 15:00 23:00 Intake Total 1042 ml 1480 ml 1763 ml 610 ml Output Total 1220 ml 1650 ml 450 ml 300 ml Balance -178 ml -170 ml 1313 ml 310 ml Intake Oral 240 ml 1480 ml 480 ml 240 ml IV Total 802 ml 1283 ml 370 ml Output Urine Total 1200 ml 1650 ml 450 ml 300 ml Drainage Total 20 ml 0 ml # Bowel Movements 0 0 0 Result Diagram: 05/25/16 0515 05/25/16 0515 Imaging Last 24 hours Impressions Thoracic Spine CT 05/22/161609 Signed Impressions: Service Date/Time: Sunday, May 22, 2016 16:33 - CONCLUSION: Negative trauma CT. Steve Rogers MD Pelvis X-Ray 05/22/161609 Signed Impressions: Service Date/Time: Sunday, May 22, 2016 16:11 - CONCLUSION: No definite fracture. There is extensive overlying artifact limiting visualization. Steve Rogers MD Maxillofacial CT 05/22/161609 Signed Impressions: Service Date/Time: Sunday, May 22, 2016 16:13 - CONCLUSION: Negative trauma CT. Steve Rogers MD Head CT 05/22/161609 Signed Impressions: Service Date/Time: Sunday, May 22, 2016 16:13 - CONCLUSION: No acute hemorrhage or mass effect identified. The study is degraded by streak artifact. Steve Rogers MD Cervical Spine CT 05/22/16 1610 Signed Impressions: Service Date/Time: Sunday, May 22, 2016 16:13 - CONCLUSION: Negative trauma CT. Steve Rogers MD Tibia/Fibula X-Ray 05/22/16 0000 Signed Impressions: Service Date/Time: Sunday, May 22, 2016 16:11 - CONCLUSION: 1. Comminuted fracture of the proximal tibia. 2. Multiple fibula fractures. 3. Apparent deformity of the distal femur which is poorly visualized. 4. Soft tissue swelling and gas bubbles in the lateral proximal leg. 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
[2016-05-25] MEDS ORDERED: WHEEMIS3 (07:44)
[2016-05-25 08:00] VITALS: BP 130/60; PULSE 78; RESP 16; TEMP 99; O2SAT 97
[2016-05-25] MEDS: SODIUM CHLORIDE 0.9% FLUSH 5 ML FLUSH IVF SCH ×2 (08:27→20:02)
[2016-05-25] MEDS: FAMOTIDINE 20 MG TAB PO SCH ×2 (08:28→19:57)
[2016-05-25] MEDS: LISINOPRIL 20 MG TAB PO SCH (08:28)
[2016-05-25] MEDS: hydrALAZINE HCL 50 MG TAB PO SCH ×3 (08:29→17:03)
[2016-05-25] MEDS: MULTIVITAMINS/MINERALS THERAPEUTIC TAB PO SCH (08:29)
[2016-05-25] MEDS: HYDROCHLOROTHIAZIDE 12.5 MG CAP PO SCH (08:30)
[2016-05-25] MEDS: CARVEDILOL 12.5 MG TAB PO SCH ×2 (08:31→19:57)
[2016-05-25] MEDS: DOCUSATE SODIUM 50 MG/SENNA 8.6 MG TAB PO SCH ×2 (08:31→19:57)
[2016-05-25] MEDS: POLYETHYLENE GLYCOL 17 GM PKG PO SCH (08:33)
[2016-05-25] MEDS: LACTULOSE SYRUP 20 GM/30 ML CUP PO SCH (08:58)
[2016-05-25] MEDS ORDERED: MAGNESIUM CITRATE SOLN 300 ML BTL PO ONE (10:00)
[2016-05-25 12:00] VITALS: BP 129/70; PULSE 76; RESP 16; TEMP 98.4; O2SAT 98
[2016-05-25] MEDS: BACITRACIN/POLYMYXIN B 15 GM TUBE TOPICAL SCH ×2 (13:29→19:58)
[2016-05-25 15:53] VITALS: BP 118/55; PULSE 86; RESP 18; TEMP 96.3; O2SAT 95
[2016-05-25] MEDS: ENOXAPARIN SODIUM 40 MG/0.4 ML SYRINGE SQ SCH (19:56)
[2016-05-25 20:43] VITALS: BP 126/64; PULSE 110; RESP 20; TEMP 101.4; O2SAT 98
[2016-05-26 00:01] VITALS: BP 110/55; PULSE 90; RESP 21; TEMP 99.9; O2SAT 94
[2016-05-26 04:01] VITALS: BP 148/58; PULSE 90; RESP 20; TEMP 99.4; O2SAT 95
[2016-05-26] MEDS: PCA - TOTAL MG DILAUDID DELIVERED PER SHIFT OTHER SCH ×3 (05:02→20:12)
[2016-05-26 08:00] VITALS: BP 131/63; PULSE 90; RESP 20; TEMP 99.8; O2SAT 94
[2016-05-26] MEDS: ceFAZolin 2 GM PREMIX 50 ML IV SCH ×3 (08:02→23:28)
[2016-05-26] MEDS: POLYETHYLENE GLYCOL 17 GM PKG PO SCH (08:03)
[2016-05-26] MEDS: LACTULOSE SYRUP 20 GM/30 ML CUP PO SCH (08:03)
[2016-05-26] MEDS: hydrALAZINE HCL 50 MG TAB PO SCH ×3 (08:03→18:32)
[2016-05-26] MEDS: DOCUSATE SODIUM 50 MG/SENNA 8.6 MG TAB PO SCH ×2 (08:03→20:12)
[2016-05-26] MEDS: SODIUM CHLORIDE 0.9% FLUSH 5 ML FLUSH IVF SCH ×2 (08:03→20:12)
[2016-05-26] MEDS: LISINOPRIL 20 MG TAB PO SCH (08:04)
[2016-05-26] MEDS: MULTIVITAMINS/MINERALS THERAPEUTIC TAB PO SCH (08:04)
[2016-05-26] MEDS: CARVEDILOL 12.5 MG TAB PO SCH ×2 (08:04→20:12)
[2016-05-26] MEDS: HYDROCHLOROTHIAZIDE 12.5 MG CAP PO SCH (08:04)
[2016-05-26] MEDS: FAMOTIDINE 20 MG TAB PO SCH ×2 (08:04→20:12)
[2016-05-26] MEDS: BACITRACIN/POLYMYXIN B 15 GM TUBE TOPICAL SCH ×2 (08:13→20:16)
[2016-05-26 09:09] LABS: REVIEW FLAG FINAL
[2016-05-26 09:13] LABS: HEMATOCRIT 20.6 % (39.0-51.0)
[2016-05-26] MEDS: HYDROmorphone HCL PCA 6 MG/30 ML IV SCH ×2 (10:32→16:37)
[2016-05-26 12:00] VITALS: BP 115/62; PULSE 84; RESP 20; TEMP 99.5; O2SAT 96
[2016-05-26 16:00] VITALS: BP 122/62; PULSE 85; RESP 20; TEMP 100.4; O2SAT 96
[2016-05-26 20:01] VITALS: BP 109/55; PULSE 88; RESP 22; TEMP 96.8; O2SAT 99
[2016-05-26] MEDS: ENOXAPARIN SODIUM 40 MG/0.4 ML SYRINGE SQ SCH (20:12)
[2016-05-27 00:40] VITALS: BP 114/53; PULSE 84; RESP 21; TEMP 97.7; O2SAT 97
[2016-05-27] MEDS: PCA - TOTAL MG DILAUDID DELIVERED PER SHIFT OTHER SCH (03:52)
[2016-05-27 04:01] VITALS: BP 119/56; PULSE 92; RESP 22; TEMP 99.9; O2SAT 97
[2016-05-27 06:10] LABS: HEMATOCRIT 21.5 % (39.0-51.0); REVIEW FLAG FINAL
[2016-05-27] MEDS: hydrALAZINE HCL 50 MG TAB PO SCH ×3 (07:56→17:40)
[2016-05-27] MEDS: FAMOTIDINE 20 MG TAB PO SCH ×2 (07:56→21:00)
[2016-05-27] MEDS: CARVEDILOL 12.5 MG TAB PO SCH ×2 (07:56→21:00)
[2016-05-27] MEDS: MULTIVITAMINS/MINERALS THERAPEUTIC TAB PO SCH (07:57)
[2016-05-27] MEDS: DOCUSATE SODIUM 50 MG/SENNA 8.6 MG TAB PO SCH ×2 (07:57→21:00)
[2016-05-27] MEDS: HYDROCHLOROTHIAZIDE 12.5 MG CAP PO SCH (07:57)
[2016-05-27] MEDS: LISINOPRIL 20 MG TAB PO SCH (07:57)
[2016-05-27] MEDS: ceFAZolin 2 GM PREMIX 50 ML IV SCH ×2 (07:59→17:40)
[2016-05-27 08:00] VITALS: BP 127/64; PULSE 82; RESP 20; TEMP 98.9; O2SAT 97
[2016-05-27] MEDS: HYDROmorphone HCL PCA 6 MG/30 ML IV SCH (08:15)
[2016-05-27] MEDS: LACTULOSE SYRUP 20 GM/30 ML CUP PO SCH (09:00)
[2016-05-27] MEDS: SODIUM CHLORIDE 0.9% FLUSH 5 ML FLUSH IVF SCH ×2 (09:00→21:00)
[2016-05-27] MEDS: POLYETHYLENE GLYCOL 17 GM PKG PO SCH (09:00)
[2016-05-27] MEDS: BACITRACIN/POLYMYXIN B 15 GM TUBE TOPICAL SCH ×2 (09:00→21:00)
[2016-05-27 12:00] VITALS: BP 117/58; PULSE 83; RESP 20; TEMP 98.7; O2SAT 96
[2016-05-27] MEDS ORDERED: WALKER/FOLDING1 MIS (14:14)
--- NOTE | 2016-05-27 14:24 | PD.ORT.PN ---
Subjective Subjective Remarks Patient comfortable. Pain controlled. Family members at bedside. Objective Vitals Vital Signs Date Time Temp Pulse Resp B/P Pulse Ox O2 Delivery O2 Flow Rate FiO2 05/27/16 08:15 16 05/27/16 08:00 98.9 82 20 127/64 97 05/27/16 04:01 99.9 92 22 119/56 97 05/27/16 03:52 18 05/27/16 00:40 97.7 84 21 114/53 97 05/26/16 22:47 Room Air 05/26/16 20:12 18 05/26/16 20:01 96.8 88 22 109/55 99 05/26/16 19:38 18 05/26/16 16:00 100.4 85 20 122/62 96 I/O 05/26/16 05/26/16 05/26/16 05/27/16 05/27/16 05/27/16 07:00 15:00 23:00 07:00 15:00 23:00 Intake Total 542 ml 459 ml 240 ml 360 ml Output Total 0 ml 0 ml 350 ml Balance 542 ml 459 ml 240 ml 10 ml Intake Oral 240 ml 240 ml 240 ml 360 ml IV Total 302 ml 219 ml Output Urine Total 350 ml Drainage Total 0 ml 0 ml 0 ml # Voids 1 4 3 # Bowel Movements 0 2 1 1 Result Diagram: 05/27/16 0521 05/25/16 0515 Imaging Last 24 hours Impressions Thoracic Spine CT 05/22/161609 Signed Impressions: Service Date/Time: Sunday, May 22, 2016 16:33 - CONCLUSION: Negative trauma CT. Steve Rogers MD Pelvis X-Ray 05/22/161609 Signed Impressions: Service Date/Time: Sunday, May 22, 2016 16:11 - CONCLUSION: No definite fracture. There is extensive overlying artifact limiting visualization. Steve Rogers MD Maxillofacial CT 05/22/161609 Signed Impressions: Service Date/Time: Sunday, May 22, 2016 16:13 - CONCLUSION: Negative trauma CT. Steve Rogers MD Head CT 05/22/161609 Signed Impressions: Service Date/Time: Sunday, May 22, 2016 16:13 - CONCLUSION: No acute hemorrhage or mass effect identified. The study is degraded by streak artifact. Steve Rogers MD Cervical Spine CT 05/22/16 1610 Signed Impressions: Service Date/Time: Sunday, May 22, 2016 16:13 - CONCLUSION: Negative trauma CT. Steve Rogers MD Tibia/Fibula X-Ray 05/22/16 0000 Signed Impressions: Service Date/Time: Sunday, May 22, 2016 16:11 - CONCLUSION: 1. Comminuted fracture of the proximal tibia. 2. Multiple fibula fractures. 3. Apparent deformity of the distal femur which is poorly visualized. 4. Soft tissue swelling and gas bubbles in the lateral proximal leg. Steve Rogers MD Objective Remarks Left lower extremity VAC removed today incisions well approximated no signs of infection minimal drainage foot NVI negative shania's moderate swelling calves soft Left Shoulder Midclavicle tenderness and mild deformity Hand NVI Assessment & Plan Problem List: (1) Type I or II open fracture of shaft of left tibia and fibula (2) Fracture of shaft of left clavicle Assessment and Plan S/P ORIF and I and D Left Tibia Plateau POD #5 Today Hgb 7.2 Repeat H&H tomorrow morning Discontinue wound vac Initiate daily dressing changes. Clean with alcohol, apply xeroform and coverderm. 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
--- NOTE | 2016-05-27 14:28 | HHI.FF ---
Face to Face Verification Diagnosis: (1) Type I or II open fracture of shaft of left tibia and fibula (2) Clavicle fracture Nursing Nursing: Dressing changes Dressing Changes: 4x4s, Xeroform, Coverderm/Primapore I have seen patient Reji Obrien on 05/27/16. My clinical findings support the need for the requested home health care services because: High risk of falls Infection w/ risk of complications I certify that my clinical findings support that this patient is homebound because: Post-op weakness Unsafe to leave home unassisted Rosendo Villagomez May 27, 2016 14:28
[2016-05-27 15:58] VITALS: BP 118/63; PULSE 85; RESP 18; TEMP 98.7; O2SAT 99
[2016-05-27 20:00] VITALS: BP 120/56; PULSE 91; RESP 22; TEMP 98.7; O2SAT 97
[2016-05-27] MEDS: ENOXAPARIN SODIUM 40 MG/0.4 ML SYRINGE SQ SCH (21:15)
[2016-05-27] MEDS: oxyCODONE/ACETAMINOPHEN 5 MG/325 MG TAB PO PRN (21:20)
[2016-05-28] VITALS (10 sets, daily range): BP systolic 108–142; BP diastolic 56–67; PULSE 82–112; RESP 16–21; TEMP 97.7–99.6; O2SAT 95–98
[2016-05-28] MEDS: ceFAZolin 2 GM PREMIX 50 ML IV SCH ×4 (01:06→23:48)
[2016-05-28] MEDS: oxyCODONE/ACETAMINOPHEN 5 MG/325 MG TAB PO PRN ×4 (03:30→23:48)
[2016-05-28] MEDS: diphenhydrAMINE HCL 25 MG CAP PO PRN ×2 (04:07→23:48)
[2016-05-28] MEDS: MULTIVITAMINS/MINERALS THERAPEUTIC TAB PO SCH (07:36)
[2016-05-28] MEDS: hydrALAZINE HCL 50 MG TAB PO SCH ×3 (07:36→17:25)
[2016-05-28] MEDS: DOCUSATE SODIUM 50 MG/SENNA 8.6 MG TAB PO SCH ×2 (07:36→20:47)
[2016-05-28] MEDS: CARVEDILOL 12.5 MG TAB PO SCH ×2 (07:37→20:46)
[2016-05-28] MEDS: LISINOPRIL 20 MG TAB PO SCH (07:37)
[2016-05-28] MEDS: HYDROCHLOROTHIAZIDE 12.5 MG CAP PO SCH (07:37)
[2016-05-28] MEDS: LACTULOSE SYRUP 20 GM/30 ML CUP PO SCH (07:38)
[2016-05-28] MEDS: FAMOTIDINE 20 MG TAB PO SCH (07:38)
[2016-05-28] MEDS: POLYETHYLENE GLYCOL 17 GM PKG PO SCH (07:39)
[2016-05-28] MEDS: SODIUM CHLORIDE 0.9% FLUSH 5 ML FLUSH IVF SCH ×2 (09:00→20:47)
[2016-05-28] MEDS: BACITRACIN/POLYMYXIN B 15 GM TUBE TOPICAL SCH ×2 (09:00→20:48)
[2016-05-28 12:38] LABS: ALKALINE PHOSPHATASE 46 U/L (45-117); ALT (GPT) 51 U/L (12-78); ANION GAP 6 MEQ/L (5-15); AST (GOT) 75 U/L (15-37); BICARBONATE 31.3 MEQ/L (21.0-32.0); BLOOD UREA NITROGEN 14 MG/DL (7-18); CHLORIDE 105 MEQ/L (98-107); CREATINE KINASE 556 U/L (39-308); GLOMERULAR FILTRATION RATE 99 ML/MIN (>89); MAGNESIUM 2.1 MG/DL (1.5-2.5); POTASSIUM 3.9 MEQ/L (3.5-5.1); SODIUM (NA) 142 MEQ/L (136-145); TOTAL BILIRUBIN ADULT 0.8 MG/DL (0.2-1.0)
[2016-05-28 13:25] LABS: CKMB 0.5 NG/ML (0.5-3.6)
[2016-05-28 16:35] LABS: AUTOMATED NEUTROPHIL # 8.6 TH/MM3 (1.8-7.7); BASOPHIL % 0.4 % (0.0-2.0); EOSINOPHIL # 0.4 TH/MM3 (0-0.4); EOSINOPHIL % 3.1 % (0.0-4.0); LYMPH % 9.9 % (9.0-44.0); LYMPHOCYTE # 1.1 TH/MM3 (1.0-4.8); MEAN CORPUSCULAR HEMOGLOBIN 29.1 PG (27.0-34.0); MEAN CORPUSCULAR HGB CONC 33.8 % (32.0-36.0); MONO % 12.4 % (0.0-8.0); NEUT % 74.2 % (16.0-70.0); PLATELET COUNT 217 TH/MM3 (150-450); RED BLOOD COUNT 2.91 MIL/MM3 (4.50-5.90); RED CELL DISTRIBUTION WIDTH 14.6 % (11.6-17.2); WHITE BLOOD COUNT 11.6 TH/MM3 (4.0-11.0)
[2016-05-28 16:45] LABS: HEMO FLAGS AUTO DIFF
--- NOTE | 2016-05-28 17:08 | PD.ORT.PN ---
Subjective Subjective Remarks Patient comfortable. Pain controlled. NAD. Objective Vitals Vital Signs Date Time Temp Pulse Resp B/P Pulse Ox O2 Delivery O2 Flow Rate FiO2 05/28/16 15:30 98.5 84 16 142/67 98 05/28/16 13:30 97.7 112 16 108/59 96 05/28/16 13:30 97.7 112 16 108/59 96 05/28/16 12:20 18 05/28/16 12:00 99.5 84 16 122/60 96 05/28/16 11:30 98.3 95 16 115/61 95 05/28/16 11:05 99.5 84 16 122/60 96 05/28/16 08:00 98.7 82 16 120/59 97 05/28/16 04:01 98.3 91 20 130/62 96 05/28/16 00:55 99.6 85 21 113/56 95 05/27/16 20:00 98.7 91 22 120/56 97 I/O 05/27/16 05/27/16 05/27/16 05/28/16 05/28/16 05/28/16 07:00 15:00 23:00 07:00 15:00 23:00 Intake Total 360 ml 360 ml 700 ml Output Total 350 ml 1500 ml 400 ml Balance 10 ml -1140 ml 300 ml Intake Oral 360 ml 360 ml 480 ml IV Total 220 ml Output Urine Total 350 ml 1500 ml 400 ml Drainage Total 0 ml # Bowel Movements 1 0 0 Result Diagram: 05/28/16 1623 05/28/16 1139 Imaging Last 24 hours Impressions Thoracic Spine CT 05/22/161609 Signed Impressions: Service Date/Time: Sunday, May 22, 2016 16:33 - CONCLUSION: Negative trauma CT. Steve Rogers MD Pelvis X-Ray 05/22/161609 Signed Impressions: Service Date/Time: Sunday, May 22, 2016 16:11 - CONCLUSION: No definite fracture. There is extensive overlying artifact limiting visualization. Steve Rogers MD Maxillofacial CT 05/22/161609 Signed Impressions: Service Date/Time: Sunday, May 22, 2016 16:13 - CONCLUSION: Negative trauma CT. Steve Rogers MD Head CT 05/22/161609 Signed Impressions: Service Date/Time: Sunday, May 22, 2016 16:13 - CONCLUSION: No acute hemorrhage or mass effect identified. The study is degraded by streak artifact. Steve Rogers MD Cervical Spine CT 05/22/16 1610 Signed Impressions: Service Date/Time: Sunday, May 22, 2016 16:13 - CONCLUSION: Negative trauma CT. Steve Rogers MD Tibia/Fibula X-Ray 05/22/16 0000 Signed Impressions: Service Date/Time: Sunday, May 22, 2016 16:11 - CONCLUSION: 1. Comminuted fracture of the proximal tibia. 2. Multiple fibula fractures. 3. Apparent deformity of the distal femur which is poorly visualized. 4. Soft tissue swelling and gas bubbles in the lateral proximal leg. Steve Rogers MD Objective Remarks LLE dressing C/D/I foot NVI negative shania's moderate swelling calves soft Left Shoulder Midclavicle tenderness and mild deformity Hand NVI Assessment & Plan Problem List: (1) Type I or II open fracture of shaft of left tibia and fibula (2) Fracture of shaft of left clavicle Assessment and Plan S/P ORIF and I and D Left Tibia Plateau POD #6 Initiate daily dressing changes. Clean with alcohol, apply xeroform and coverderm. Pain management - Percocet DVT prophalaxis - Lovenox Physical therapy - non weight bearing LLE Monitor Orthopedically stable for discharge D/C planning: anticipating home with [facility] Tuesday ([place]) Follow-up in [address] Carballo or RAGHU in office Left clavicle shaft fx proceed with nonoperative care at this time Rosendo Villagomez May 28, 2016 17:08
[2016-05-28] MEDS ORDERED: 3-IN3MIS (17:14)
[2016-05-28] MEDS ORDERED: ENOX40P SQ (17:14)
[2016-05-28] MEDS ORDERED: OXYC1TAB63 PO (17:14)
[2016-05-28 17:40] LABS: PLATELET ESTIMATE SMEAR NORMAL (NORMAL); PLATELET MORPHOLOGY NORMAL (NORMAL); SCAN/DIFF AUTO DIFF CONFIRMED
[2016-05-28] MEDS: ENOXAPARIN SODIUM 40 MG/0.4 ML SYRINGE SQ SCH (20:46)
[2016-05-28] MEDS: SODIUM CHLOR 0.9% 1000 ML INJ 1,000 ML IV SCH (20:47)
[2016-05-28] MEDS ORDERED: FAMOTIDINE 20 MG TAB PO SCH (21:00)
--- NOTE | 2016-05-28 21:11 | HHI.PR ---
Subjective Remarks Deferred entry, patient seen earlier at 9:45 AM. Patient; dropped. The patient denies chest pain or short of breath. Hemoglobin trending down Stable vital signs otherwise. Objective Vitals Vital Signs Date Time Temp Pulse Resp B/P Pulse Ox O2 Delivery O2 Flow Rate FiO2 05/28/16 18:47 Room Air 05/28/16 16:00 97.7 112 16 108/59 96 05/28/16 15:30 98.5 84 16 142/67 98 05/28/16 13:30 97.7 112 16 108/59 96 05/28/16 13:30 97.7 112 16 108/59 96 05/28/16 12:20 18 05/28/16 12:00 99.5 84 16 122/60 96 05/28/16 11:30 98.3 95 16 115/61 95 05/28/16 11:05 99.5 84 16 122/60 96 05/28/16 08:00 98.7 82 16 120/59 97 05/28/16 04:01 98.3 91 20 130/62 96 05/28/16 00:55 99.6 85 21 113/56 95 I/O 05/27/16 05/27/16 05/27/16 05/28/16 05/28/16 05/28/16 07:00 15:00 23:00 07:00 15:00 23:00 Intake Total 360 ml 360 ml 700 ml 600 ml Output Total 350 ml 1500 ml 400 ml 800 ml Balance 10 ml -1140 ml 300 ml -200 ml Intake Oral 360 ml 360 ml 480 ml 600 ml IV Total 220 ml Output Urine Total 350 ml 1500 ml 400 ml 800 ml Drainage Total 0 ml # Bowel Movements 1 0 0 1 Result Diagram: 05/28/16 1623 05/28/16 1139 Imaging Last Impressions Thoracic Spine CT 05/22/16 161 Signed Impressions: Service Date/Time: Sunday, May 22, 2016 16:33 - CONCLUSION: Negative trauma CT. Steve Rogers MD Pelvis X-Ray 05/22/161609 Signed Impressions: Service Date/Time: Sunday, May 22, 2016 16:11 - CONCLUSION: No definite fracture. There is extensive overlying artifact limiting visualization. Steve Rogers MD Maxillofacial CT 05/22/161609 Signed Impressions: Service Date/Time: Sunday, May 22, 2016 16:13 - CONCLUSION: Negative trauma CT. Steve Rogers MD Lumbar Spine CT 05/22/16 1610 Signed Impressions: Service Date/Time: Sunday, May 22, 2016 16:33 - CONCLUSION: Negative trauma CT. Steve Rogers MD Head CT 05/22/16 1610 Signed Impressions: Service Date/Time: Sunday, May 22, 2016 16:13 - CONCLUSION: No acute hemorrhage or mass effect identified. The study is degraded by streak artifact. Steve Rogers MD Chest CT 05/22/16 1610 Signed Impressions: Service Date/Time: Sunday, May 22, 2016 16:33 - CONCLUSION: 1. Comminuted fracture of the left clavicle. 2. The Ribs are intact and there is no pneumothorax. Steve Rogers MD Cervical Spine CT 05/22/16 1610 Signed Impressions: Service Date/Time: Sunday, May 22, 2016 16:13 - CONCLUSION: Negative trauma CT. Steve Rogers MD Abdomen/Pelvis CT 05/22/16 1610 Signed Impressions: Service Date/Time: Sunday, May 22, 2016 16:33 - CONCLUSION: Negative trauma CT. Steve Rogers MD Tibia/Fibula X-Ray 05/22/16 0000 Signed Impressions: Service Date/Time: Sunday, May 22, 2016 21:06 - CONCLUSION: Fluoroscopic images during placement of intramedullary jaime fixating left tibia fracture. Sahil Portillo MD Chest X-Ray 05/22/16 0000 Signed Impressions: Service Date/Time: Sunday, May 22, 2016 16:11 - CONCLUSION: No acute disease. Left clavicle fracture. Sahil Portillo MD Objective Remarks GENERAL: Well-nourished, well-developed black male who is laying in bed SKIN: Warm and dry. HEAD: Laceration above L eyelid is healed. EYES: Pupils equal and round, 4 mm and reactive to 2 mm bilaterally, EOMI. No scleral icterus. No injection or drainage. ENT: No nasal bleeding or discharge. Mucous membranes pink and moist. NECK: Trachea midline. No JVD. Cervical collar in place. CARDIOVASCULAR: Regular rate and rhythm, sinus rhythm on the monitor with rate 60s. No murmurs rubs or gallops. RESPIRATORY: No accessory muscle use. Clear to auscultation. Breath sounds equal bilaterally. Sats 100% on 2 L nasal cannula. GASTROINTESTINAL: Abdomen soft, non-tender, nondistended. Bowel sounds present. : Kumar in place with yellow urine output. MUSCULOSKELETAL: Extremities without clubbing, cyanosis. Tender to palpation L clavicle. Dressing and wound vac in place left lower extremity. Moves toes bilaterally, sensation intact. NEUROLOGICAL: Awake and alert. No obvious cranial nerve deficits. Motor grossly within normal limits. Normal speech. Medications and IVs Current Medications Medications (Trade) Dose Ordered Sig/[place] Route Start Time Stop Time Status Last Admin (Dilaudid Pf Inj) 1 mg Q3HR PRN IV 05/22/16 17:15 (Lactulose Liq) 30 ml DAILY PO 05/22/16 17:30 05/26/16 08:03 (NS Flush) 2 ml UNSCH PRN IVF 05/22/16 18:00 (NS Flush) 2 ml BID IVF 05/22/16 21:00 05/28/16 20:47 (Lovenox Inj) 40 mg Q24H SQ 05/23/16 21:15 05/28/16 20:46 (Tanisha-Colace) 1 tab BID PO 05/22/16 21:00 05/28/16 07:36 Magnesium Hydroxide 10 ml 10 ml Q12H PRN PO 05/22/16 18:00 05/24/16 08:13 (Ancef 2 Gm Premix) 50 ml @ 100 mls/hr Q8H IV 05/23/16 00:00 06/13/16 00:00 05/28/16 15:58 Miscellaneous Information UNSCH PRN XX 05/22/16 18:00 (Percocet 5-325 Mg) 1 tab Q4H PRN PO 05/22/16 18:00 05/24/16 14:16 (Percocet 5-325 Mg) 2 tab Q6H PRN PO 05/22/16 18:00 05/28/16 17:32 (Zofran Inj) 4 mg Q4H PRN IVP 05/22/16 18:00 (Theragran M Tab) 1 tab DAILY PO 05/23/16 09:00 05/28/16 07:36 (Benadryl) 25 mg Q6H PRN PO 05/22/16 18:00 05/28/16 04:07 (Tylenol) 650 mg Q4H PRN PO 05/23/16 06:45 05/25/16 20:17 (Norvasc) 10 mg DAILY PO 05/23/16 09:00 05/28/16 07:36 (Polysporin Oint) 1 applic Q12HR TOPICAL 05/23/16 21:00 05/28/16 20:48 (Coreg) 25 mg BID PO 05/24/16 09:00 05/28/16 20:46 (Apresoline) 50 mg TID PO 05/24/16 09:00 05/28/16 17:25 (Prinivil) 20 mg DAILY PO 05/24/16 09:15 05/28/16 07:37 (Microzide) 12.5 mg DAILY PO 05/24/16 09:15 05/28/16 07:37 (Miralax) 17 gm DAILY PO 05/24/16 13:45 05/26/16 08:03 Miscellaneous 1 ea 1 ea UNSCH PRN OTHER 05/24/16 14:15 (NS 1000 ml Inj) 1,000 ml @ 84 mls/hr [id number] IV 05/28/16 10:45 (Pepcid) 20 mg BID PO 05/28/16 21:00 05/28/16 20:46 Urinary Catheter: No Vascular Central Line Catheter: No A/P Problem List: (1) Anemia ICD Code: D64.9 Status: Acute Plan: Patient's hemoglobin dropped to 6.8. Transfuse 2 units of proper blood cells. Follow-up hemoglobin post transfusional Transfuse for hemoglobin less than 7 or symptomatic anemia. DC pepcid - start protonix check stool guaiac (2) HTN (hypertension) ICD Code: I10 Status: Chronic Plan: BP stable. Continue current antihypertensive medications which include lisinopril, Coreg and hydrochlorothiazide. (3) MANISHA (acute kidney injury) ICD Code: N17.9 Status: Resolved Plan: Patient initially with elevated creatinine. Acute kidney injury now resolved after IV fluid administration. (4) Facial laceration ICD Code: S01.81XA Status: Acute Plan: Steri-Strips in place. (5) Type I or II open fracture of shaft of left tibia and fibula ICD Code: S82.202B Status: Acute Plan: Post post irrigation and debridement of the open left tibia fracture with open reduction internal fixation with IM jaime. Management as per orthopedic surgery. (6) Stress hyperglycemia ICD Code: R73.9 Status: Resolved Plan: Now resolved. Assessment and Plan GI prophylaxis: PPI. Differences: SCDs, no chemotherapy prophylaxis given drop in hemoglobin. Problem Qualifiers (1) Anemia: Qualified Code: D64.9 - Anemia, unspecified type (2) Type I or II open fracture of shaft of left tibia and fibula: Qualified Code: S82.202B - Type I or II open fracture of shaft of left tibia and fibula, initial encounter Serjio Alba MD May 28, 2016 21:11
[2016-05-29] VITALS: BP 123/79; PULSE 87; RESP 20; TEMP 98.6; O2SAT 98
[2016-05-29 05:09] LABS: AUTOMATED NEUTROPHIL # 10.1 TH/MM3 (1.8-7.7); BASOPHIL # 0.1 TH/MM3 (0-0.2); BASOPHIL % 0.7 % (0.0-2.0); EOSINOPHIL # 0.4 TH/MM3 (0-0.4); EOSINOPHIL % 3.1 % (0.0-4.0); HEMATOCRIT 24.5 % (39.0-51.0); HEMO FLAGS DIFF FINAL; LYMPH % 10.5 % (9.0-44.0); LYMPHOCYTE # 1.4 TH/MM3 (1.0-4.8); MEAN CELL VOLUME 84.3 FL (80.0-100.0); MEAN CORPUSCULAR HEMOGLOBIN 28.5 PG (27.0-34.0); MEAN CORPUSCULAR HGB CONC 33.8 % (32.0-36.0); MONO % 11.5 % (0.0-8.0); NEUT % 74.2 % (16.0-70.0); PLATELET COUNT 263 TH/MM3 (150-450); RED BLOOD COUNT 2.91 MIL/MM3 (4.50-5.90); RED CELL DISTRIBUTION WIDTH 14.9 % (11.6-17.2); WHITE BLOOD COUNT 13.6 TH/MM3 (4.0-11.0)
[2016-05-29 05:33] LABS: BICARBONATE 29.2 MEQ/L (21.0-32.0); POTASSIUM 3.9 MEQ/L (3.5-5.1)
[2016-05-29] MEDS: oxyCODONE/ACETAMINOPHEN 5 MG/325 MG TAB PO PRN ×2 (06:41→13:03)
--- NOTE | 2016-05-29 07:06 | PD.ORT.PN ---
Subjective Subjective Remarks POD 7 s/p ORIF left tibia s/p left clavicle fx doing well. pain controlled. out of bed with [facility] case mgmt arranging DC plan Objective Vitals Vital Signs Date Time Temp Pulse Resp B/P Pulse Ox O2 Delivery O2 Flow Rate FiO2 05/29/16 00:00 98.6 87 20 123/79 98 05/28/16 20:00 98.1 88 20 121/64 98 05/28/16 18:47 Room Air 05/28/16 16:00 97.7 112 16 108/59 96 05/28/16 15:30 98.5 84 16 142/67 98 05/28/16 13:30 97.7 112 16 108/59 96 05/28/16 13:30 97.7 112 16 108/59 96 05/28/16 12:20 18 05/28/16 12:00 99.5 84 16 122/60 96 05/28/16 11:30 98.3 95 16 115/61 95 05/28/16 11:05 99.5 84 16 122/60 96 05/28/16 08:00 98.7 82 16 120/59 97 I/O 05/28/16 05/28/16 05/28/16 05/29/16 05/29/16 05/29/16 07:00 15:00 23:00 07:00 15:00 23:00 Intake Total 700 ml 600 ml 480 ml 480 ml Output Total 400 ml 800 ml 350 ml Balance 300 ml -200 ml 480 ml 130 ml Intake Oral 480 ml 600 ml 480 ml 480 ml IV Total 220 ml Output Urine Total 400 ml 800 ml 350 ml # Voids 3 # Bowel Movements 0 1 0 0 Result Diagram: 05/29/165 05/29/16 0315 Imaging Last 24 hours Impressions [address] Spine CT 05/22/161609 Signed Impressions: Service Date/Time: Sunday, May 22, 2016 16:33 - CONCLUSION: Negative trauma CT. Steve Rogers MD Pelvis X-Ray 05/22/161609 Signed Impressions: Service Date/Time: Sunday, May 22, 2016 16:11 - CONCLUSION: No definite fracture. There is extensive overlying artifact limiting visualization. Steve Rogers MD Maxillofacial CT 05/22/161609 Signed Impressions: Service Date/Time: Sunday, May 22, 2016 16:13 - CONCLUSION: Negative trauma CT. Steve Rogers MD Head CT 05/22/16 1610 Signed Impressions: Service Date/Time: Sunday, May 22, 2016 16:13 - CONCLUSION: No acute hemorrhage or mass effect identified. The study is degraded by streak artifact. Steve Rogers MD Cervical Spine CT 05/22/16 1610 Signed Impressions: Service Date/Time: Sunday, May 22, 2016 16:13 - CONCLUSION: Negative trauma CT. Steve Rogers MD Tibia/Fibula X-Ray 05/22/16 0000 Signed Impressions: Service Date/Time: Sunday, May 22, 2016 16:11 - CONCLUSION: 1. Comminuted fracture of the proximal tibia. 2. Multiple fibula fractures. 3. Apparent deformity of the distal femur which is poorly visualized. 4. Soft tissue swelling and gas bubbles in the lateral proximal leg. Steve Rogers MD Objective Remarks LLE dressing C/D/I foot NVI negative shania's moderate swelling calves soft Left Shoulder Midclavicle tenderness and mild deformity Hand NVI Assessment & Plan Problem List: (1) Type I or II open fracture of shaft of left tibia and fibula (2) Fracture of shaft of left clavicle Assessment and Plan S/P ORIF and I and D Left Tibia Plateau POD #7 s/p left nonop clavicle fx Initiate daily dressing changes. Clean with alcohol, apply xeroform and coverderm. Pain management - Percocet DVT prophalaxis - Lovenox Physical therapy - non weight bearing LLE Monitor Orthopedically stable for discharge D/C planning: anticipating home with [facility] today Follow-up in [address] Carballo or RAGHU in office Left clavicle shaft fx proceed with nonoperative care at this time Watson Beasley May 29, 2016 07:06
[2016-05-29 07:23] VITALS: BP 141/74; PULSE 83; RESP 18; TEMP 99.4; O2SAT 97
[2016-05-29] MEDS: MULTIVITAMINS/MINERALS THERAPEUTIC TAB PO SCH (08:38)
[2016-05-29] MEDS: ceFAZolin 2 GM PREMIX 50 ML IV SCH (08:38)
[2016-05-29] MEDS: DOCUSATE SODIUM 50 MG/SENNA 8.6 MG TAB PO SCH (08:38)
[2016-05-29] MEDS: CARVEDILOL 12.5 MG TAB PO SCH (08:39)
[2016-05-29] MEDS: LISINOPRIL 20 MG TAB PO SCH (08:39)
[2016-05-29] MEDS: hydrALAZINE HCL 50 MG TAB PO SCH ×2 (08:39→12:59)
[2016-05-29] MEDS: HYDROCHLOROTHIAZIDE 12.5 MG CAP PO SCH (08:39)
[2016-05-29] MEDS: POLYETHYLENE GLYCOL 17 GM PKG PO SCH (08:40)
[2016-05-29] MEDS: LACTULOSE SYRUP 20 GM/30 ML CUP PO SCH (08:40)
[2016-05-29] MEDS: SODIUM CHLORIDE 0.9% FLUSH 5 ML FLUSH IVF SCH (08:40)
[2016-05-29] MEDS: BACITRACIN/POLYMYXIN B 15 GM TUBE TOPICAL SCH (08:44)
[2016-05-29] MEDS ORDERED: PANTOPRAZOLE SOD 40 MG DELAYED RELEASE TAB PO SCH (09:00)
[2016-05-29] MEDS: SODIUM CHLOR 0.9% 1000 ML INJ 1,000 ML IV SCH (10:35)
--- NOTE | 2016-05-29 10:50 | HHI.PR ---
Subjective Remarks denies cp/sob denies fevers/chills eating well denies melena Objective Vitals Vital Signs Date Time Temp Pulse Resp B/P Pulse Ox O2 Delivery O2 Flow Rate FiO2 05/29/16 07:23 99.4 83 18 141/74 97 05/29/16 00:00 98.6 87 20 123/79 98 05/28/16 20:00 98.1 88 20 121/64 98 05/28/16 18:47 Room Air 05/28/16 16:00 97.7 112 16 108/59 96 05/28/16 15:30 98.5 84 16 142/67 98 05/28/16 13:30 97.7 112 16 108/59 96 05/28/16 13:30 97.7 112 16 108/59 96 05/28/16 12:20 18 05/28/16 12:00 99.5 84 16 122/60 96 05/28/16 11:30 98.3 95 16 115/61 95 05/28/16 11:05 99.5 84 16 122/60 96 I/O 05/28/16 05/28/16 05/28/16 05/29/16 05/29/16 05/29/16 07:00 15:00 23:00 07:00 15:00 23:00 Intake Total 700 ml 600 ml 480 ml 480 ml Output Total 400 ml 800 ml 350 ml Balance 300 ml -200 ml 480 ml 130 ml Intake Oral 480 ml 600 ml 480 ml 480 ml IV Total 220 ml Output Urine Total 400 ml 800 ml 350 ml # Voids 3 # Bowel Movements 0 1 0 0 Result Diagram: 05/29/1631405/29/16314 Imaging Last Impressions Thoracic Spine CT 05/22/161609 Signed Impressions: Service Date/Time: Sunday, May 22, 2016 16:33 - CONCLUSION: Negative trauma CT. Steve Rogers MD Pelvis X-Ray 05/22/161609 Signed Impressions: Service Date/Time: Sunday, May 22, 2016 16:11 - CONCLUSION: No definite fracture. There is extensive overlying artifact limiting visualization. Steve Rogers MD Maxillofacial CT 05/22/161609 Signed Impressions: Service Date/Time: Sunday, May 22, 2016 16:13 - CONCLUSION: Negative trauma CT. Steve Rogers MD Lumbar Spine CT 05/22/16 1610 Signed Impressions: Service Date/Time: Sunday, May 22, 2016 16:33 - CONCLUSION: Negative trauma CT. Steve Rogers MD Head CT 05/22/16 1610 Signed Impressions: Service Date/Time: Sunday, May 22, 2016 16:13 - CONCLUSION: No acute hemorrhage or mass effect identified. The study is degraded by streak artifact. Steve Rogers MD Chest CT 05/22/16 1610 Signed Impressions: Service Date/Time: Sunday, May 22, 2016 16:33 - CONCLUSION: 1. Comminuted fracture of the left clavicle. 2. The Ribs are intact and there is no pneumothorax. Steve Rogers MD Cervical Spine CT 05/22/16 1610 Signed Impressions: Service Date/Time: Sunday, May 22, 2016 16:13 - CONCLUSION: Negative trauma CT. Steve Rogers MD Abdomen/Pelvis CT 05/22/16 1610 Signed Impressions: Service Date/Time: Sunday, May 22, 2016 16:33 - CONCLUSION: Negative trauma CT. Steve Rogers MD Tibia/Fibula X-Ray 05/22/16 0000 Signed Impressions: Service Date/Time: Sunday, May 22, 2016 21:06 - CONCLUSION: Fluoroscopic images during placement of intramedullary jaime fixating left tibia fracture. Sahil Portillo MD Chest X-Ray 05/22/16 0000 Signed Impressions: Service Date/Time: Sunday, May 22, 2016 16:11 - CONCLUSION: No acute disease. Left clavicle fracture. Sahil Portillo MD Objective Remarks GENERAL: Well-nourished, well-developed black male who is laying in bed SKIN: Warm and dry. HEAD: Laceration above L eyelid is healed. EYES: Pupils equal and round, 4 mm and reactive to 2 mm bilaterally, EOMI. No scleral icterus. No injection or drainage. ENT: No nasal bleeding or discharge. Mucous membranes pink and moist. NECK: Trachea midline. No JVD. Cervical collar in place. CARDIOVASCULAR: Regular rate and rhythm, sinus rhythm on the monitor with rate 60s. No murmurs rubs or gallops. RESPIRATORY: No accessory muscle use. Clear to auscultation. Breath sounds equal bilaterally. Sats 100% on 2 L nasal cannula. GASTROINTESTINAL: Abdomen soft, non-tender, nondistended. Bowel sounds present. : Kumar in place with yellow urine output. MUSCULOSKELETAL: Extremities without clubbing, cyanosis. Tender to palpation L clavicle. Dressing and wound vac in place left lower extremity. Moves toes bilaterally, sensation intact. NEUROLOGICAL: Awake and alert. No obvious cranial nerve deficits. Motor grossly within normal limits. Normal speech. Procedures Status post irrigation and debridement of open left tibia fracture with open reduction internal fixation with IM jaime and placement of wound VAC. Medications and IVs Current Medications Medications (Trade) Dose Ordered Sig/[place] Route Start Time Stop Time Status Last Admin (Dilaudid Pf Inj) 1 mg Q3HR PRN IV 05/22/16 17:15 (Lactulose Liq) 30 ml DAILY PO 05/22/16 17:30 05/26/16 08:03 (NS Flush) 2 ml UNSCH PRN IVF 05/22/16 18:00 (NS Flush) 2 ml BID IVF 05/22/16 21:00 05/29/16 08:40 (Tanisha-Colace) 1 tab BID PO 05/22/16 21:00 05/29/16 08:38 Magnesium Hydroxide 10 ml 10 ml Q12H PRN PO 05/22/16 18:00 05/24/16 08:13 (Ancef 2 Gm Premix) 50 ml @ 100 mls/hr Q8H IV 05/23/16 00:00 06/13/16 00:00 05/29/16 08:38 Miscellaneous Information UNSCH PRN XX 05/22/16 18:00 (Percocet 5-325 Mg) 1 tab Q4H PRN PO 05/22/16 18:00 05/24/16 14:16 (Percocet 5-325 Mg) 2 tab Q6H PRN PO 05/22/16 18:00 05/29/16 06:41 (Zofran Inj) 4 mg Q4H PRN IVP 05/22/16 18:00 (Theragran M Tab) 1 tab DAILY PO 05/23/16 09:00 05/29/16 08:38 (Benadryl) 25 mg Q6H PRN PO 05/22/16 18:00 05/28/16 23:48 (Tylenol) 650 mg Q4H PRN PO 05/23/16 06:45 05/25/16 20:17 (Norvasc) 10 mg DAILY PO 05/23/16 09:00 05/29/16 08:39 (Polysporin Oint) 1 applic Q12HR TOPICAL 05/23/16 21:00 05/29/16 08:44 (Coreg) 25 mg BID PO 05/24/16 09:00 05/29/16 08:39 (Apresoline) 50 mg TID PO 05/24/16 09:00 05/29/16 08:39 (Prinivil) 20 mg DAILY PO 05/24/16 09:15 05/29/16 08:39 (Microzide) 12.5 mg DAILY PO 05/24/16 09:15 05/29/16 08:39 (Miralax) 17 gm DAILY PO 05/24/16 13:45 05/26/16 08:03 Miscellaneous 1 ea 1 ea UNSCH PRN OTHER 05/24/16 14:15 (NS 1000 ml Inj) 1,000 ml @ 84 mls/hr [id number] IV 05/28/16 10:45 (Protonix) 40 mg DAILY PO 05/29/16 09:00 05/29/16 08:38 Urinary Catheter: No Vascular Central Line Catheter: No A/P Problem List: (1) Anemia ICD Code: D64.9 Status: Acute (2) HTN (hypertension) ICD Code: I10 Status: Chronic (3) MANISHA (acute kidney injury) ICD Code: N17.9 Status: Resolved (4) Facial laceration ICD Code: S01.81XA Status: Acute (5) Type I or II open fracture of shaft of left tibia and fibula ICD Code: S82.202B Status: Acute (6) Stress hyperglycemia ICD Code: R73.9 Status: Resolved Assessment and Plan (1) Anemia Plan: Patient's hemoglobin dropped to 6.8. Patient is status post transfusion of 2 units of red blood cells. Hemoglobin stable at 8.5- 8.3 Continue Protonix check stool guaiac - can be done as an outpatient (2) HTN (hypertension) Plan: BP stable. Continue current antihypertensive medications which include lisinopril, Coreg and hydrochlorothiazide. (3) MANISHA (acute kidney injury) Plan: Patient initially with elevated creatinine. Acute kidney injury now resolved after IV fluid administration. (4) Facial laceration Plan: Steri-Strips in place. (5) Type I or II open fracture of shaft of left tibia and fibula Plan: Post post irrigation and debridement of the open left tibia fracture with open reduction internal fixation with IM jaime. Management as per orthopedic surgery. (6) Stress hyperglycemia Plan: Now resolved. GI prophylaxis: PPI. Differences: SCDs, no chemotherapy prophylaxis given drop in hemoglobin. Discharge Planning Patient cleared to be discharged from medical standpoint. Fu with pmd and will order an outpatient stool guaiac and cbc. Problem Qualifiers (1) Anemia: Qualified Code: D64.9 - Anemia, unspecified type (2) Type I or II open fracture of shaft of left tibia and fibula: Qualified Code: S82.202B - Type I or II open fracture of shaft of left tibia and fibula, initial encounter Serjio Alba MD May 29, 2016 10:50
[2016-05-29 13:05] VITALS: BP 137/81; PULSE 82; RESP 18; TEMP 97.3; O2SAT 98
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
== END 2016-05-29 15:47 | disposition home health service (06) | DRG 492 ==
LOC: NEPI 15:55 → EDBD 16:26 → NEDA 16:26 → HPAC 05-23 01:29 → N06A 05-23 10:35
PROVIDERS: ADMIT Orthopaedic Surgery Sports Medicine; ATTEND Orthopaedic Surgery Sports Medicine
PROC: 08QPXZZ Repair Left Upper Eyelid, External Approach (ICD-10-PCS; 2016-05-22)
PROC: 30233N1 Transfusion of Nonautologous Red Blood Cells into Peripheral Vein, Percutaneous Approach (ICD-10-PCS; 2016-05-22)
PROC: 0QSH06Z Reposition Left Tibia with Intramedullary Internal Fixation Device, Open Approach (ICD-10-PCS; principal; 2016-05-22 18:15)
DX: S82.109A Unspecified fracture of upper end of unspecified tibia, initial encounter for closed fracture (principal); T79.4XXA Traumatic shock, initial encounter; N17.9 Acute kidney failure, unspecified; I95.9 Hypotension, unspecified; D62 Acute posthemorrhagic anemia; Z68.43 Body mass index [BMI] 50.0-59.9, adult; S82.252B Displaced comminuted fracture of shaft of left tibia, initial encounter for open fracture type I or II; S42.022A Displaced fracture of shaft of left clavicle, initial encounter for closed fracture; S82.452B Displaced comminuted fracture of shaft of left fibula, initial encounter for open fracture type I or II; S06.0X0A Concussion without loss of consciousness, initial encounter; S01.112A Laceration without foreign body of left eyelid and periocular area, initial encounter; I10 Essential (primary) hypertension; E66.9 Obesity, unspecified; F17.210 Nicotine dependence, cigarettes, uncomplicated; R40.2412 Glasgow coma scale score 13-15, at arrival to emergency department; R73.9 Hyperglycemia, unspecified; V29.9XXA Motorcycle rider (driver) (passenger) injured in unspecified traffic accident, initial encounter
CPT/HCPCS: 12011; 36430; 70450; 70486; 71010; 71260; 72125; 72128; 72131; 72170; 73590; 74177; 76000; 76937; 80048; 80053; 81001; 82435; 82550; 82552; 82565; 82805; 82947; 83735; 84100; 84132; 84295; 84520; 85014; 85018; 85025; 85610; 85730; 86850; 86900; 86901; 86920; 90471; 90715; 94150; 96374; 99291; C1713; G0390; J0131; J0690; J1170; J1580; J1650; J2250; J2270; J2370; J2405; J3370; J7030; L0150; P9016; Q9967